=== PATIENT | female | born 1950 | race Caucasian/White ===

== ENCOUNTER 2024-12-08 15:50 | Observation (INO) ==
[2024-12-08] MEDS ORDERED: VANCOMYCIN CONSULT ACTIVE PRN (16:53)
[2024-12-08] MEDS ORDERED: PIPERACILLIN/TAZOBACTAM 4.5 GM/100 ML BAG IV ONE (16:58)
--- NOTE | 2024-12-08 17:18 | Emergency Department Note ---
Impression & Plan Septic arthritis of wrist, right, Right wrist pain ED Provider Note NAME: CARL MONTGOMERY AGE: 74 SEX: F : 1950 ARRIVES VIA: Walk-In INFORMANT: Patient, ED PROVIDER(S): Hardik Gresham MD CHIEF COMPLAINT: Hand infection, outpatient referral MEDICAL DECISION MAKING: Patient presents for the above. I did reach out to Dr. Briones reported that the patient is likely had a hand infection over the last 3 weeks which has progressively gotten worse. Not amenable to outpatient antibiotics. He is requesting an MRI of the wrist for preoperative purposes but will plan to operate on the patient tomorrow afternoon. IV was established and blood work was obtained along with blood cultures and the patient was ordered IV vancomycin and Rocephin. Blood work shows a normal white count hemoglobin and platelet count. The patient's kidney function is unremarkable. Pro-Pablo is not elevated. Screening EKG does show nonspecific ST changes but the patient has no chest pain or shortness of breath. No priors for comparison. I did speak with the on-call hospitalist service LAQUITA Alfred PA-C and the patient was admitted by Dr. Ortiz. Discussion w/ other healthcare providers: ADELIA Alfred PA-C and Dr. Ortiz inpatient medicine service Dr. Briones orthopedic hand specialist Prior /Outside records reviewed: Did review the patient's outpatient physician note from Dr. Spear from earlier today Differential diagnosis: Cellulitis, abscess, MRSA infection, DVT, necrotizing fasciitis, dermatitis, drug eruption, allergic reaction, as well as other pathologies were considered. Diagnostics, as interpreted by me: ECG: Normal sinus rhythm, rate of 83, normal intervals normal axis no ST elevations. Possible slight ST depressions in the lateral leads. No priors for comparison. Cardiac monitoring: An order was placed for continuous cardiac monitoring. The monitor shows a rate of 85 with sinus rhythm. Patient was placed on pulse oximetry Medical decision rules: None Imaging studies: See below HPI: Patient presents due to concern for right hand swelling which is ongoing about 3 weeks ago. The patient reports she was initially seen at [place] and was prescribed steroids for 5 days for possible arthritis. The patient was seen in the outpatient setting by Dr. Hdz where her PCP was for her on Keflex for 10 days but this has not improved. Reportedly was at the office today was noted to have hypotension and was referred here for possible IV antibiotics as well as possible surgery. There have been discussion with Dr. Briones from hand surgery about the possibility of outpatient MRI and surgery tomorrow at [facility]; however, during the patient's preoperative visit with her primary care doctor they were concerned about her symptoms and blood pressure and referred here. Patient denies any fevers or chills. No falls or trauma. The patient is right- hand dominant. She denies any inciting cause to her hand swelling. She denies any injury or trauma no bug bite or allergy. She states that it is somewhat painful. PAST MEDICAL HISTORY: See Below PAST SURGICAL HISTORY: See Below SOCIAL HISTORY: See Below HOME MEDICATIONS: See Below ALLERGIES: See Below VITALS: See Below PHYSICAL EXAMINATION: GENERAL: NAD, non-toxic. EYE EXAM: Normal conjunctiva. PERRL, no anisocoria and EOM's grossly intact w/o pain. OROPHARYNX: Moist mucus membranes, grossly normal dentition. NECK: Trachea midline, no stridor. LUNGS: Clear to auscultation. Normal chest wall mechanics. HEART: NSR, no MRG. ABDOMEN: Abdomen soft, non-tender, no masses, no rebound or guarding. BACK: No CVA TTP. SKIN: No rashes and no bruising. UPPER EXTREMITIES: Right hand pain and swelling with associated erythema, no crepitus, compartments are soft. Neurovascular intact distally able to flex and extend at all the fingers. LOWER EXTREMITIES: Grossly normal, no edema. NEURO EXAM: Awake and alert, follows commands, no obvious facial asymmetry, normal speech, moves all 4 extremities. Past Med/Surg History Problem List (Updated 12/09/24 @ 20:19 by Hardik Gresham MD) Septic arthritis of wrist, right (Acute) Right wrist pain (Acute) Medical History Encounter for pre-operative examination Infectious tenosynovitis Psoriatic arthritis Hypokalemia Hypothyroidism Hypertension Surgical History History of heart artery stent Social History Smoking Status: Never smoker Hx Alcohol Use: No Hx Substance Use: No Preferred Language: Romansh Communication Ability: Effective Seaming Inspector Required: No Beliefs That Will Affect Care: None Current Living Situation: Spouse and Family Current Living Situation Comment: with and daughter Other Information That Helps Us Care for You: No Feels Safe at Home: Yes Safety Concerns: Feels Safe At This Time Assistive Devices: Walker Assistive Devices Comment: partial Allergies Allergies Allergy/AdvReac Type Severity Reaction Status Date / Time No Known Allergies Allergy Verified 12/08/24 17:59 Home Meds Home Medications Medication Instructions Recorded Confirmed apremilast 30 mg tablet (Otezla) 30 mg PO BID 12/08/24 12/08/24 aspirin 81 mg tablet,delayed 81 mg PO DAILY 12/08/24 12/08/24 release atorvastatin 40 mg tablet 40 mg PO DAILY 12/08/24 12/08/24 celecoxib 200 mg capsule 200 mg PO QDD 12/08/24 12/08/24 cephalexin 500 mg capsule 500 mg PO Q6H 12/08/24 12/08/24 cholecalciferol (vitamin D3) 10 20 mcg PO DAILY 12/08/24 12/08/24 mcg (400 unit) capsule (Vitamin D3) clopidogrel 75 mg tablet 75 mg PO DAILY 12/08/24 12/08/24 furosemide 20 mg tablet 20 mg PO DAILY PRN EDEMA/LEG 12/08/24 12/08/24 SWELLING levothyroxine 125 mcg tablet 125 mcg PO DAILYBB 12/08/24 12/08/24 losartan 100 mg tablet 100 mg PO QDD 12/08/24 12/08/24 magnesium oxide 400 mg PO DAILY 12/08/24 12/08/24 metoprolol succinate 50 mg 75 mg PO QDD 12/08/24 12/08/24 tablet,extended release 24 hr nifedipine 60 mg tablet,extended 60 mg PO QAM 12/08/24 12/08/24 release 24 hr (Procardia XL) nitroglycerin 0.4 mg sublingual 0.4 mg sublingual DIRECTED PRN 12/08/24 12/08/24 tablet Chest Pain Results & Data (ED) Vital Signs Vital Signs - 24 hr 12/08/24 15:55 Temperature 37.1 C Temperature Source Temporal Artery Scan Pulse Rate 96 H Respiratory Rate 19 Respiratory Effort / Characteristics Non-Labored Spontaneous Respiratory Depth Normal Respiratory Pattern Regular Blood Pressure 124/75 Blood Pressure Mean 91 Blood Pressure Position Sitting Pulse Oximetry 96 Oxygen Delivery Method Room Air Sepsis Recent Fever Within 48 Hours No Sepsis New/Unexplained Change in Mental Status No Sepsis Action Taken by Nursing No Action Required Home Medications Current Medication List: was personally reviewed by me Laboratory Data Attestation: I reviewed the patient's lab results. 12/09/24 04:11 12/09/24 04:11 Lab Results 12/08/24 Range/Units 17:30 WBC 10.27 (4.8-10.8) K/ul RBC 4.82 (4.20-5.40) M/uL Hgb 12.3 (12.0-16.0) g/dl Hct 38.7 (37.0-47.0) % MCV 80.3 (80.0-100.0) fL MCH 25.5 (25.0-34.0) pg MCHC 31.8 L (32.0-36.0) g/dL RDW Std Deviation 43.5 (36.4-46.3) fL RDW Coeff of Alirio 14.9 H (11.5-14.5) % Plt Count 320 (130-400) K/uL MPV 10.1 (9.4-12.4) fL Immature Gran % (Auto) 0.6 % Neut % (Auto) 79.1 % Lymph % (Auto) 10.3 % Coleman % (Auto) 7.8 % Eos % (Auto) 1.7 % Baso % (Auto) 0.5 % Neut # (Auto) 8.13 H (1.40-6.50) K/uL Lymph # (Auto) 1.06 L (1.20-3.40) K/uL Coleman # (Auto) 0.80 H (0.11-0.59) K/uL Eos # (Auto) 0.17 (0.00-0.50) K/uL Baso # (Auto) 0.05 (0.00-0.20) K/uL Immature Gran # (Auto) 0.06 (0.01-0.20) K/uL Sodium 143 (136-145) mmol/L Potassium 3.7 (3.5-5.1) mmol/L Chloride 108 H (98-107) mmol/L Carbon Dioxide 26 (21-32) mmol/L Anion Gap 9 (3-11) BUN 20 (6-23) mg/dl Creatinine 0.94 (0.6-1.2) mg/dl Est Cr Clr Drug Dosing 47.2 ml/min eGFR 63.67 BUN/Creatinine Ratio 21.3 H (10-20) Glucose 111 H (70-99(Fasting)) mg/dl Lactate 0.7 (0.4-2.0) mmol/L Calcium 9.0 (8.6-10.3) mg/dl Magnesium 2.5 H (1.7-2.4) mg/dl Total Bilirubin 0.5 (0.2-1.0) mg/dl Direct Bilirubin 0.1 (0-0.2) mg/dl AST 16 (13-39) U/L ALT 25 (7-52) U/L Alkaline Phosphatase 107 H (34-104) U/L Troponin I High Sens 4.6 (0-14) pg/ml Total Protein 7.5 (6.0-8.3) gm/dl Albumin 3.8 (3.4-5.0) gm/dl Procalcitonin < 0.02 (0-0.5) ng/ml Administered Medications Atorvastatin Calcium (Atorvastatin 40 Mg Tab) 40 mg PO DAILY [facility] Stop: 01/08/25 08:59 Last Admin: 12/09/24 09:23 Dose: Not Given Documented By: NICA Vancomycin HCl 750 mg/ Sodium (Chloride) 265 mls @ 200 mls/hr IV Q12H [facility] Stop: 12/16/24 05:59 Last Infusion: 12/09/24 19:38 Dose: Infused Documented By: Infusion: 12/09/24 19:09 Dose: 200 mls/hr Documented By: Infusion: 12/09/24 18:18 Dose: 0 mls/hr Documented By: Admin: 12/09/24 17:28 Dose: 200 mls/hr Documented By: Infusion: 12/09/24 07:47 Dose: Infused Documented By: Admin: 12/09/24 06:18 Dose: 200 mls/hr Documented By: BRYSON Ceftriaxone Sodium (Rocephin) 2,000 mg in 50 mls @ 100 mls/hr IV Q24H [facility]Y Stop: 12/16/24 17:59 Last Admin: 12/09/24 20:12 Dose: 100 mls/hr Documented By: TLBing Lactated Ringer's (Lr) 1,000 mls @ 15 mls/hr IV .Q24H FABY Stop: 12/12/24 12:59 Last Infusion: 12/09/24 13:46 Dose: Infused Documented By: Admin: 12/09/24 13:30 Dose: 15 mls/hr Documented By: ANNALISA Levothyroxine Sodium (Levothyroxine Sodium 125 Mcg Tablet) 125 mcg PO DAILYBB [facility] Stop: 01/08/25 06:29 Last Admin: 12/09/24 09:23 Dose: Not Given Documented By: NICA Metoprolol Succinate (Metoprolol Succ 25mg Ext Rel Tab) 75 mg PO QDD FABY Stop: 01/08/25 16:29 Last Admin: 12/09/24 17:24 Dose: 75 mg Documented By: NICA Nifedipine (Nifedipine Extended Rel 30 Mg Tabcr) 60 mg PO QAM [facility] Stop: 01/08/25 08:59 Last Admin: 12/09/24 09:23 Dose: Not Given Documented By: NICA Discontinued Medications Acetaminophen (Acetaminophen 325 Mg Tab) 650 mg PO NOW STA Stop: 12/08/24 18:51 Last Admin: 12/08/24 20:12 Dose: 650 mg Documented By: SAHRA Bupivacaine HCl (Bupivacaine 0.5 % 5 Mg/1 Ml Mpf 30ml Vial) Confirm Administered Dose 30 ml .ROUTE .STK-MED ONE Stop: 12/09/24 13:35 Last Admin: 12/09/24 15:05 Dose: 10 ml Documented By: GALINA Fentanyl Citrate (Fentanyl Citrate Pf 100 Mcg/2 Ml Vial) 25 mcg IV Q5M PRN PRN Reason: PACU Use Only-Pain Stop: 12/09/24 23:20 Last Admin: 12/09/24 15:46 Dose: 25 mcg Documented By: Admin: 12/09/24 15:41 Dose: 25 mcg Documented By: Admin: 12/09/24 15:36 Dose: 25 mcg Documented By: Admin: 12/09/24 15:31 Dose: 25 mcg Documented By: BHAVIK Fentanyl Citrate (Fentanyl Citrate Pf 100 Mcg/2 Ml Vial) Confirm Administered Dose 100 mcg .ROUTE .STK-MED ONE Stop: 12/09/24 15:24 Last Admin: 12/09/24 17:16 Dose: Not Given Documented By: NICA Gadobutrol (Gadobutrol 30ml Vial) 6.5 ml IV ONCE ONE Stop: 12/08/24 19:10 Last Admin: 12/08/24 19:10 Dose: 6.5 ml Documented By: MAYKEL Sodium Chloride (Nss) 1,000 mls @ 999 mls/hr IV .Q1H1M FABY Stop: 12/08/24 18:00 Last Infusion: 12/08/24 19:40 Dose: Infused Documented By: Admin: 12/08/24 17:43 Dose: 999 mls/hr Documented By: SAHRA Vancomycin HCl 1,500 mg/ (Sodium Chloride) 500 mls @ 200 mls/hr IV NOW STA Stop: 12/08/24 19:17 Last Infusion: 12/08/24 20:21 Dose: Infused Documented By: Admin: 12/08/24 17:43 Dose: 200 mls/hr Documented By: SAHRA Ceftriaxone Sodium (Rocephin) 2,000 mg in 50 mls @ 100 mls/hr IV NOW STA Stop: 12/08/24 17:43 Last Infusion: 12/08/24 19:36 Dose: Infused Documented By: Admin: 12/08/24 17:43 Dose: 100 mls/hr Documented By: SAHRA Potassium Chloride (K Wan / Wtr) 10 meq in 100 mls @ 100 mls/hr IV Q1H FABY Stop: 12/09/24 14:29 Last Admin: 12/09/24 14:33 Dose: Not Given Documented By: Infusion: 12/09/24 12:50 Dose: Infused Documented By: Admin: 12/09/24 11:48 Dose: 100 mls/hr Documented By: NICA Acetaminophen (Ofirmev) 1,000 mg in 100 mls @ 400 mls/hr IV NOW STA Stop: 12/09/24 10:39 Last Infusion: 12/09/24 11:29 Dose: Infused Documented By: Admin: 12/09/24 10:57 Dose: 400 mls/hr Documented By: NICA Sodium Chloride (Nss) 500 mls @ 80 mls/hr IV .Q6H15M [facility] Stop: 12/09/24 16:44 Last Infusion: 12/09/24 17:17 Dose: Infused Documented By: Admin: 12/09/24 10:57 Dose: 80 mls/hr Documented By: NICA Ondansetron HCl (Ondansetron Inj 2 Mg/Ml 2 Ml Vial) 4 mg IV ONCE PRN PRN Reason: PACU Use Only-Nausea/Vomiting Stop: 12/09/24 23:20 Last Admin: 12/09/24 15:30 Dose: 4 mg Documented By: BHAVIK Ondansetron HCl (Ondansetron Inj 2 Mg/Ml 2 Ml Vial) Confirm Administered Dose 4 mg .ROUTE .STK-MED ONE Stop: 12/09/24 15:24 Last Admin: 12/09/24 17:17 Dose: Not Given Documented By: NICA Ondansetron HCl (Ondansetron Inj 2 Mg/Ml 2 Ml Vial) 4 mg IV NOW STA Stop: 12/09/24 18:20 Last Admin: 12/09/24 18:25 Dose: 4 mg Documented By: NICA Potassium Chloride (Potassium Chloride Crtab 20 Meq Tabcr) 20 meq PO ONE ONE Stop: 12/09/24 18:01 Last Admin: 12/09/24 17:32 Dose: 20 meq Documented By: NICA Imaging Data Radiologist's Impression: Wrist MRI 12/08/24 16:55 EXAM: MR wrist RT wo/w con CLINICAL HISTORY: eval for tenosynovitis TECHNIQUE: Multiplanar multiphasic MR imaging is acquired through the right wrist joint without and with intravenous contrast administration. 6.5 mL of Gadavist was injected intravenously without complications. Images were sent through PACs for diagnostic interpretation. COMPARISON: None. FINDINGS: The triangular fibrocartilage complex: The ulnomeniscal homologue, foveal and ulnar attachments of the triangular fibrocartilage show altered signals, suggesting partial tears. Mild synovial effusion is seen at the distal radioulnar joint, which may suggest central perforation of the triangular fibrocartilage. Joints, Muscles, and soft tissues: Soft tissue edema is seen at the distal forearm and around the right wrist joint. Most appreciated at the dorsum. Findings suggest posttraumatic contusion versus soft tissue cellulitis radiocarpal, ulnocarpal, intercarpal, and carpometacarpal synovial effusion with degenerative changes expressed by denuded articular cartilage with underlying cortical fibrillation and subchondral edema. Degenerative cysts are seen at the right trapezium. Findings are consistent with polyarticular degenerative joint disease (primary osteoarthritis). Associating edema of the right scaphoid, lunate, triquetrum, trapezium, trapezoid, capitate, and pisiform bones, suggesting trabecular microfractures versus osteomyelitis. Altered myogenic signals of the thenar, hypothenar, and lumbrical muscles. The etiological probabilities include trabecular microfractures With Polymyogenic strain versus Osteomyelitis and myositis Ligaments and Tendons: Altered signals of the ulnocarpal, Radiocarpal, and radial collateral, radioscaphocapitate, radioscaphotrapezium, And Dorsal radiocarpal ligaments findings are consistent with partial tears. The right extensor carpi ulnaris tendon shows thickening with altered signals, highly suggestive of tendinitis/partial tear. Normal MRI appearance of the carpal tunnel and its contents. Unremarkable Extensor tendon compartments. Intact scapholunate and lunotriquetral ligaments. Neurovascular Structures: Normal appearance of the visualized neurovascular structures. No evidence of compression or abnormal signal changes. Ulnar variance: Neutral ulnar variance. IMPRESSION: 1. Partial tears of the ulnomeniscal homologue, foveal and ulnar attachments of the triangular fibrocartilage. (Acute/Acute on top of chronic). 2. Mild synovial effusion is seen at the distal radioulnar joint, which may suggest central perforation of the triangular fibrocartilage. (Acute/Acute on top of chronic). 3. 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 4. Bone marrow edema at the right scaphoid, lunate, triquetrum, trapezium, trapezoid, capitate, and pisiform bones.Myogenic signal alterations of the thenar, hypothenar, and lumbrical muscles. 5. And soft tissue edema at the distal forearm and around the right wrist joint. Most appreciated at the dorsum. The etiological probabilities include Soft tissue contusion/cellulitis, trabecular microfractures/ With Polymyogenic strain versus myositis. Further workup is recommended in the appropriate clinical setting. (Acute/Acute on top of chronic). 6. Partial tears of the ulnocarpal, Radiocarpal, and radial collateral, radioscaphocapitate, radioscaphotrapezium, and dorsal radiocarpal ligaments. (Acute). 7. Tendinitis/partial tear of the right extensor carpi ulnaris tendon(Acute). Electronically signed by Alberto Hou 12-08-2024 9:23 PM Discharge Plan Visit Data Chief Complaint: Infection Stated Complaint: RT HAND SWELLING, INFECTION, LOW BP, REF BY ED Provider: Hardik Gresham Discharge Problem: Septic arthritis of wrist, right, Right wrist pain Patient Disposition: Admitted As Inpatient Condition: Good Discharge Instructions Interventions: ED Discharge Assessment Last Done: 12/09/24 03:52 Discharge Problem: Septic arthritis of wrist, right Qualifiers: Septic arthritis organism: due to unspecified organism Qualified Code(s): M00.9 - Pyogenic arthritis, unspecified
--- NOTE | 2024-12-08 17:24 | History & Physical Report ---
Date of Service December 08, 2024 Assessment & Plan (1) Right wrist pain: (2) Infectious tenosynovitis: (3) History of heart artery stent: (4) Hypertension: Plan This patient is a 74-year-old female who presented on 12/08 at the best of her PCP (Dr. Spear) as well as ortho surgery (Dr. Briones) for IV abx in the setting of worsening right wrist infection. # Right wrist infection | suspected to be infectious tenosynovitis Failure of outpatient antibiotics (Keflex) No leukocytosis; VSS on admission; not septic; afebrile, however patient reported fevers at home in the week [employer] Blood cultures drawn Lactate and procalcitonin WNL Orthopedic surgery consult appreciated Hold antiplatelet therapy prior to surgery I&D scheduled with Dr. Briones on the morning of 12/09 N.p.o. midnight MR wrist RT wo/w con ordered, pending to assess for infectious tenosynovitis Vancomycin 1000 mg IV q24h Ceftriaxone 2000 mg IV q24h Acetaminophen as needed for fever/pain control #History of PTCA with RAMON in 2022 Noted; hold aspirin and Plavix prior to surgery (as above) #HTN Hold nifedipine on the morning of 12/09 prior to surgery; will plan to restart on 12/10 Hold losartan perioperatively Continue metoprolol #HLD Continue atorvastatin #Hypothyroidism Continue levothyroxine #?Psoriatic arthritis Hold apremilast for now in the setting of acute infection [facility] PPx: Hold chemical DVT X prior to surgery; SCDs History of Present Illness Chief Complaint: Right hand/wrist infection Primary Care Provider: Paolo Spear DO Mrs. Fountain is a [id number] 74yo female with PMH of PTCA with RAMON in 2022 (on aspirin and Plavix), HTN, HLD, psoriatic thyroiditis, and hypothyroidism. She presented on 12/08 for a worsening right hand/wrist infection x 2 weeks [employer]. Patient was initially trialed on Keflex outpatient by her PCP, but this did not improve her symptoms. She also was prescribed trial of steroids outpatient, but this did not improve her symptoms or swelling. She has been having pain mainly in the thumb joint of her right hand, on the dorsal aspect of her right wrist. Pain radiates up to her elbow. She characterizes it as a constant, "throbbing" pain around the thumb. Patient has been taking tramadol at home for pain (which was leftover from her hip surgery), and reports that this has been helping more than Tylenol. At present, she rates the pain 5 out of 10. Patient saw her PCP today, and was sent in for IV antibiotics. She was originally set to have a surgical consult with U tomorrow on 12/09. She denies any prior history of injuries to the right arm or wrist. In regard to cardiac history, she underwent a PTCA with RAMON in 2022. She is currently on aspirin and Plavix daily for heart stents, but was told to to stop taking them yesterday on 12/07 in preparation for potential surgery. No PMH of stroke, DM, or kidney issues. Patient believes she might of had fevers at home this past week. She denies smoking, tobacco use, or recent alcohol use. Patient took most of her regular morning medicines today, but did not take her aspirin or Plavix. She is still currently taking her antibiotic. She manages her own medicine at home. Patient's vitals are stable at time of admission. ED course: NSS 1000 mL IV Vancomycin 1500 mg IV Ceftriaxone 2000 mg IV ROS: Patient endorses pain on the dorsal aspect of the right wrist and around the right thumb joint, fevers at home this past week, night sweats, headache, numbness or tingling in the right hand, and difficulty flexing/moving her fingers. Patient denies chills, dizziness/lightheadedness with walking, changes in vision, chest pain, chest palpitations, SOB, cough, pleuritic CP, abdominal pain, N/V/D, or changes in urinary bowel habits. Allergies Allergy/AdvReac Type Severity Reaction Status Date / Time No Known Allergies Allergy Verified 12/08/24 17:59 Home Medications Medication Instructions Recorded Confirmed Type apremilast 30 mg tablet (Otezla) 30 mg PO BID 12/08/24 12/08/24 History aspirin 81 mg tablet,delayed 81 mg PO DAILY 12/08/24 12/08/24 History release atorvastatin 40 mg tablet 40 mg PO DAILY 12/08/24 12/08/24 History celecoxib 200 mg capsule 200 mg PO QDD 12/08/24 12/08/24 History cephalexin 500 mg capsule 500 mg PO Q6H 12/08/24 12/08/24 History cholecalciferol (vitamin D3) 10 20 mcg PO DAILY 12/08/24 12/08/24 History mcg (400 unit) capsule (Vitamin D3) clopidogrel 75 mg tablet 75 mg PO DAILY 12/08/24 12/08/24 History furosemide 20 mg tablet 20 mg PO DAILY PRN EDEMA/LEG 12/08/24 12/08/24 History SWELLING levothyroxine 125 mcg tablet 125 mcg PO DAILYBB 12/08/24 12/08/24 History losartan 100 mg tablet 100 mg PO QDD 12/08/24 12/08/24 History magnesium oxide 400 mg PO DAILY 12/08/24 12/08/24 History metoprolol succinate 50 mg 75 mg PO QDD 12/08/24 12/08/24 History tablet,extended release 24 hr nifedipine 60 mg tablet,extended 60 mg PO QAM 12/08/24 12/08/24 History release 24 hr (Procardia XL) nitroglycerin 0.4 mg sublingual 0.4 mg sublingual DIRECTED PRN 12/08/24 12/08/24 History tablet Chest Pain Past Med/Surg History Problem List (Updated 12/08/24 @ 18:52 by Edy Alfred PA-C) Hypertension History of heart artery stent Infectious tenosynovitis Right wrist pain Social History Smoking Status: Never smoker Preferred Language: Frisian Feels Safe at Home: Yes Review of Systems 2 Review of Systems: See HPI above Physical Exam 2 Physical Exam: General: no acute distress; anxious; pleasant affect; non-toxic appearing; frail appearing; cooperative; SpO2 96% on RA HEENT: normocephalic, atraumatic; no scleral icterus; PERRLA; vision and hearing intact Neck: supple; trachea midline Skin: warm, dry without signs of tenting; no cyanosis; no rashes, bruising, lesions, or erythema noted CV: chest wall NTP; RRR; S1/S2 normal; no murmurs/rubs/gallops; pulses intact and symmetric at radial, DP, and PT Lungs: no acute respiratory distress; symmetrical chest wall expansion; clear breath sounds across all lung maxwell w/o adventitious sounds; no wheezing ABD: Soft, NTP; BS present; no rebound/guarding; no distention MSK: no tics or fasciculations; no edema noted in the LEs b/l, nonerythematous Right hand: The dorsal aspect of the right hand/wrist is swollen and mildly erythematous (see photos below); hot to touch; thumb saddle joint is TTP, and patient exhibits minimal ability to flex at the DIP of her thumb; patient exhibits ability to flex 15 to 25 degrees in each of her finger joints, but this elicits pain; patient has significant difficulty flexing and extending her wrist; no deficits or difficulty with flexing/extending her elbow Neuro: A&Ox3; normal mood and affect; fluent speech; patient reports sensation is intact and symmetric in the hands bilaterally assessed via light touch at the ulnar/radial surfaces Results & Data Results & Data Vital Signs (Past 12 Hours) Vital Signs Temp Pulse Resp BP Pulse Ox O2 Del Method 12/08/24 15:55 37.1 C 96 H 19 124/75 96 Room Air Laboratory Results Abnormal lab results 12/08/24 Range/Units 17:30 MCHC 31.8 L (32.0-36.0) g/dL RDW Coeff of Alirio 14.9 H (11.5-14.5) % Neut # (Auto) 8.13 H (1.40-6.50) K/uL Lymph # (Auto) 1.06 L (1.20-3.40) K/uL Elliott # (Auto) 0.80 H (0.11-0.59) K/uL ECG Additional Comments: EKG revealed NSR at 83 bpm; QTc 474 No prior EKGs readily available for comparison Code Status & VTE Plan Code Status Full code VTE Prophylaxis Plan VTE Prophylaxis will be ordered: Yes Supervising Physician Co-Signing Physician Notes I personally examined the patient and verified all lawton points of history and exam, discussed case, and agree with decision making with Federico Alfred PA-C hand swollen tender. Saw Ortho in the officerecommended admission for more urgent management. Vitals noted, in general she is pleasant no distress but her hand and wrist are quite swollen. Hand/wrist infectionimaging, antibiotics, orthopedics consult. Otherwise as above. PG Care Time/CCT Total # of Minutes Spent Total Time Spent with Patient: Total time spent is greater than 50% in coordination of care (as documented) at patient's floor/unit and/or counseling patient: [place] [address] INT INP/OBS CARE 75MIN Patient Type New Medical Decision Making High Complexity Diagnoses Right wrist pain M25.531 Infectious tenosynovitis M65.10 History of heart artery stent Z95.5 Hypertension I10
[2024-12-08] MEDS: SODIUM CHLORIDE 0.9% 1,000 ML IV SCH (17:43)
[2024-12-08] MEDS: VANCOMYCIN HCL 1,500 MG in SODIUM CHLORIDE 0.9% 500 ML IV STA (17:43)
[2024-12-08] MEDS: cefTRIAXone SODIUM 2,000 MG/50 ML BAG IV STA (17:43)
[2024-12-08 18:04] LABS: Hematocrit (blood only) 38.7 % (37.0-47.0); Hemoglobin 12.3 g/dl (12.0-16.0); Immature Granulocytes # (auto) 0.06 K/uL (0.01-0.20); Immature Granulocytes % (auto) 0.6 %; Mean Corpuscular Hemoglobin 25.5 pg (25.0-34.0); Mean Corpuscular Volume 80.3 fL (80.0-100.0); Platelet Count 320 K/uL (130-400); RDW Standard Deviation 43.5 fL (36.4-46.3); Red Blood Count 4.82 M/uL (4.20-5.40); White Blood Count 10.27 K/ul (4.8-10.8)
[2024-12-08 18:22] LABS: Alanine Aminotransferase 25.0 U/L (7-52); Alkaline Phosphatase 107.0 U/L (34-104); Anion Gap 9.0 (3-11); Bilirubin,Total 0.5 mg/dl (0.2-1.0); Blood Urea Nitrogen 20.0 mg/dl (6-23); Calcium 9.0 mg/dl (8.6-10.3); Carbon Dioxide 26.0 mmol/L (21-32); Chloride 108.0 mmol/L (98-107); Creatinine Clr Calc Pharmacy 47.2 ml/min; Glucose 111.0 mg/dl (70-99(Fasting)); Magnesium 2.5 mg/dl (1.7-2.4); Potassium 3.7 mmol/L (3.5-5.1); Sodium 143.0 mmol/L (136-145); Total Protein 7.5 gm/dl (6.0-8.3)
[2024-12-08] MEDS: GADOBUTROL 30ML VIAL IV ONE (19:10)
[2024-12-08] MEDS: ACETAMINOPHEN 325 MG TAB PO STA (20:12)
--- NOTE | 2024-12-08 21:23 | Magnetic Resonance Report ---
EXAM: MR wrist RT wo/w con CLINICAL HISTORY: eval for tenosynovitis TECHNIQUE: Multiplanar multiphasic MR imaging is acquired through the right wrist joint without and with intravenous contrast administration. 6.5 mL of Gadavist was injected intravenously without complications. Images were sent through PACs for diagnostic interpretation. COMPARISON: None. FINDINGS: The triangular fibrocartilage complex: The ulnomeniscal homologue, foveal and ulnar attachments of the triangular fibrocartilage show altered signals, suggesting partial tears. Mild synovial effusion is seen at the distal radioulnar joint, which may suggest central perforation of the triangular fibrocartilage. Joints, Muscles, and soft tissues: Soft tissue edema is seen at the distal forearm and around the right wrist joint. Most appreciated at the dorsum. Findings suggest posttraumatic contusion versus soft tissue cellulitis radiocarpal, ulnocarpal, intercarpal, and carpometacarpal synovial effusion with degenerative changes expressed by denuded articular cartilage with underlying cortical fibrillation and subchondral edema. Degenerative cysts are seen at the right trapezium. Findings are consistent with polyarticular degenerative joint disease (primary osteoarthritis). Associating edema of the right scaphoid, lunate, triquetrum, trapezium, trapezoid, capitate, and pisiform bones, suggesting trabecular microfractures versus osteomyelitis. Altered myogenic signals of the thenar, hypothenar, and lumbrical muscles. The etiological probabilities include trabecular microfractures With Polymyogenic strain versus Osteomyelitis and myositis Ligaments and Tendons: Altered signals of the ulnocarpal, Radiocarpal, and radial collateral, radioscaphocapitate, radioscaphotrapezium, And Dorsal radiocarpal ligaments findings are consistent with partial tears. The right extensor carpi ulnaris tendon shows thickening with altered signals, highly suggestive of tendinitis/partial tear. Normal MRI appearance of the carpal tunnel and its contents. Unremarkable Extensor tendon compartments. Intact scapholunate and lunotriquetral ligaments. Neurovascular Structures: Normal appearance of the visualized neurovascular structures. No evidence of compression or abnormal signal changes. Ulnar variance: Neutral ulnar variance. IMPRESSION: 1. Partial tears of the ulnomeniscal homologue, foveal and ulnar attachments of the triangular fibrocartilage. (Acute/Acute on top of chronic). 2. Mild synovial effusion is seen at the distal radioulnar joint, which may suggest central perforation of the triangular fibrocartilage. (Acute/Acute on top of chronic). 3. 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 4. Bone marrow edema at the right scaphoid, lunate, triquetrum, trapezium, trapezoid, capitate, and pisiform bones.Myogenic signal alterations of the thenar, hypothenar, and lumbrical muscles. 5. And soft tissue edema at the distal forearm and around the right wrist joint. Most appreciated at the dorsum. The etiological probabilities include Soft tissue contusion/cellulitis, trabecular microfractures/ With Polymyogenic strain versus myositis. Further workup is recommended in the appropriate clinical setting. (Acute/Acute on top of chronic). 6. Partial tears of the ulnocarpal, Radiocarpal, and radial collateral, radioscaphocapitate, radioscaphotrapezium, and dorsal radiocarpal ligaments. (Acute). 7. Tendinitis/partial tear of the right extensor carpi ulnaris tendon(Acute). Electronically signed by Alberto Hou 12-08-2024 9:23 PM
[2024-12-09] MEDS ORDERED: VANCOMYCIN CONSULT ACTIVE PRN (03:52)
[2024-12-09] MEDS ORDERED: MELATONIN 3 MG TAB PO PRN (03:52)
[2024-12-09 04:53] LABS: Hematocrit (blood only) 35.0 % (37.0-47.0); Hemoglobin 11.0 g/dl (12.0-16.0); Immature Granulocytes # (auto) 0.03 K/uL (0.01-0.20); Immature Granulocytes % (auto) 0.4 %; Mean Corpuscular Hemoglobin 25.5 pg (25.0-34.0); Mean Corpuscular Volume 81.2 fL (80.0-100.0); Platelet Count 284 K/uL (130-400); RDW Standard Deviation 43.8 fL (36.4-46.3); Red Blood Count 4.31 M/uL (4.20-5.40); White Blood Count 8.00 K/ul (4.8-10.8)
[2024-12-09 05:08] LABS: Anion Gap 6.0 (3-11); Blood Urea Nitrogen 15.0 mg/dl (6-23); Calcium 7.9 mg/dl (8.6-10.3); Carbon Dioxide 26.0 mmol/L (21-32); Chloride 110.0 mmol/L (98-107); Creatinine Clr Calc Pharmacy 60.0 ml/min; Glucose 95.0 mg/dl (70-99(Fasting)); Potassium 3.3 mmol/L (3.5-5.1); Sodium 142.0 mmol/L (136-145)
[2024-12-09] MEDS: VANCOMYCIN HCL 750 MG in SODIUM CHLORIDE 0.9% 250 ML IV SCH (06:18)
[2024-12-09] MEDS: ATORVASTATIN 40 MG TAB PO SCH (09:23)
[2024-12-09] MEDS: LEVOTHYROXINE SODIUM 125 MCG TABLET PO SCH (09:23)
[2024-12-09] MEDS: NIFEdipine EXTENDED REL 30 MG TABCR PO SCH (09:23)
--- NOTE | 2024-12-09 10:09 | Pharmacy Report ---
Pharmacy PK ABX Note - Date of Service December 09, 2024 - Assessment and Plan Assessment 74 year old F receiving vancomycin and ceftriaxone for treatment of suspected tenosynovitis. Worsening hand/wrist infection X 2 weeks outpatient, trialed on cephalexin by PCP. Ortho consulted. Plan for I&D today. Blood cultures pending. SCr 0.94-->0/74mg/dl. Day # 2 of antimicrobial therapy. Plan Vancomycin * Loading dose: 1500 mg IV x 1 * Maintenance dose: 750 mg IV every 12 hours * Regimen is predicted to achieve target AUC/LEXI of 400-600 mg/L.hr * Random level in AM Pharmacy will continue to follow and will adjust dose/frequency as necessary. Thank you. Pharmacy has transitioned to AUC monitoring for vancomycin. AUC/LEXI is the preferred PK/PD target and is associated with decreased risk of nephrotoxicity compared to traditional trough targets.
--- NOTE | 2024-12-09 10:38 | Hospitalist Progress Note ---
"Date of Service December 09, 2024 Assessment & Plan (1) Right wrist pain: (2) Infectious tenosynovitis: (3) History of heart artery stent: (4) Hypertension: Plan This patient is a 74-year-old female who presented on 12/08 at the best of her PCP (Dr. Spear) as well as ortho surgery (Dr. Briones) for IV abx in the setting of worsening right wrist infection. # Right wrist infection | suspected to be infectious tenosynovitis Failure of outpatient antibiotics (Keflex) No leukocytosis; VSS on admission; not septic; afebrile, however patient reported fevers at home in the week [employer] Blood cultures drawn on 12/08 with NGTD Lactate and procalcitonin WNL Orthopedic surgery consult appreciated Hold antiplatelet therapy prior to surgery IVF added while NPO I&D with Dr. Briones on the afternoon of 12/09 MR wrist RT wo/w con on 12/09 revealed partial tears and multiple ligaments; tendinitis at the right extensor carpi ulnaris tendon Continue Vancomycin 1000 mg IV q24h Continue Ceftriaxone 2000 mg IV q24h Acetaminophen as needed for fever/pain control #Hypokalemia Mild; K 3.3 on 12/09 K rider 10 mEq x 2 Potassium chloride 20mEq p.o. following surgery Trend BMP #History of PTCA with RAMON in 2022 Noted; hold aspirin and Plavix prior to surgery (as above) #HTN Hold nifedipine on the morning of 12/09 prior to surgery; will plan to restart on 12/10 Hold losartan perioperatively Continue metoprolol #HLD Continue atorvastatin #Hypothyroidism Continue levothyroxine #?Psoriatic arthritis Hold apremilast for now in the setting of acute infection Disposition: Continued stay on MedSurg telemetry VTE PPx: Hold chemical DVT PPX prior to surgery; SCDs Admission and Anticipated Discharge Date Admission Date: December 08, 2024 Supervising Physician Co-Signing Physician Notes Attending Attestation - Chart reviewed, care plan d/w GENA lAfred. I agree w/ the lawton components of his documentation. Appreciate ortho assistance. f/u on crystal analysis from the OR today. f/u on multiple cultures from the OR today. Steven Doran MD Subjective Mrs. Fountain is resting peacefully in bed this morning. She had some difficulty sleeping last night as she was awoken around 2 AM to be moved up from the emergency department to her bed upstairs. She reports her wrist is still hurting this morning, and it is about the same as yesterday. She rates it a 5 out of 10 with most of the pain being around the saddle joint of her thumb. The pain does extend up to her elbow at times. She also noted tingling in her fingers overnight. No fevers. ROS: Patient Dors is pain in the right wrist, pain in the right hand around the thumb, and tingling in her fingers. Patient denies fever, chills, night sweats, chest pain, SOB, pleuritic CP, cough, abdominal pain, N/V/D, or changes in urinary or bowel habits. Review of Systems Review of Systems: See HPI above Physical Exam Physical Exam: General: no acute distress; anxious; resting peacefully in bed; pleasant affect; non-toxic appearing; frail appearing; cooperative; SpO2 95% on RA HEENT: normocephalic, atraumatic; no scleral icterus; PERRLA; vision and hearing intact Neck: supple; trachea midline Skin: warm, dry without signs of tenting; no cyanosis; no rashes, bruising, lesions, or erythema noted CV: chest wall NTP; RRR; S1/S2 normal; no murmurs/rubs/gallops; pulses intact and symmetric at radial, DP, and PT Lungs: no acute respiratory distress; symmetrical chest wall expansion; clear breath sounds across all lung maxwell w/o adventitious sounds; no wheezing ABD: Soft, NTP; BS present; no rebound/guarding; no distention MSK: no tics or fasciculations; no edema noted in the LEs b/l, nonerythematous Right hand: The dorsal aspect of the right hand/wrist is swollen and mildly erythematous; warm to touch; thumb saddle joint is TTP, and patient exhibits minimal ability to flex at the DIP of her thumb; patient exhibits ability to flex approximately 30 degrees in each finger joint; patient has significant difficulty flexing and extending her wrist; no deficits or difficulty with flexing/extending her elbow Neuro: A&Ox3; normal mood and affect; fluent speech; patient reports sensation is intact and symmetric in the hands bilaterally assessed via light touch at the ulnar/radial surfaces Results & Data Results & Data Vital Signs (Past 12 Hours) Vital Signs Temp Pulse Resp BP Pulse Ox O2 Del Method 12/09/24 10:31 79 12/09/24 06:00 68 13 123/76 95 Room Air 12/09/24 04:13 67 16 95 Room Air 12/09/24 04:00 69 20 103/53 L 93 Room Air 12/09/24 03:33 71 14 130/68 93 Room Air 12/09/24 02:03 68 16 104/59 L 96 Room Air 12/09/24 02:00 Room Air 12/09/24 02:00 36.6 C 12/09/24 01:33 76 12/09/24 01:00 75 16 159/90 H 95 Room Air 12/09/24 00:33 78 15 145/83 H 97 Room Air 12/09/24 00:09 76 13 144/75 H 96 Room Air 12/08/24 23:16 77 16 142/78 H 95 Room Air 12/08/24 23:00 78 17 142/79 H 94 Room Air 12/08/24 22:45 76 17 148/81 H 96 Room Air PG Care Time/CCT Total # of Minutes Spent Total Time Spent with Patient: Total time spent is greater than 50% in coordination of care (as documented) at patient's floor/unit and/or counseling patient: Coding [place] [address] SUB INP/OBS CARE 2/35MIN Patient Type Established Medical Decision Making Moderate Complexity Diagnoses Right wrist pain M25.531 Infectious tenosynovitis M65.10 History of heart artery stent Z95.5 Hypertension I10"
[2024-12-09] MEDS: SODIUM CHLORIDE 0.9% 500 ML IV SCH (10:57)
[2024-12-09] MEDS: ACETAMINOPHEN 1,000 MG/100 ML VIAL IV STA (10:57)
--- NOTE | 2024-12-09 11:03 | Communication Note ---
Date of Service: December 09, 2024 MRI and labs reviewed. Given clinical exam of severe joint pain and swelling wtih ESR=48 I have concern to septic joint. Will plan for OR this afternoon.
[2024-12-09] MEDS: POTASSIUM CHLORIDE / WTR 10 MEQ/100 ML PLCT IV SCH (11:48)
[2024-12-09] MEDS ORDERED: MIDAZOLAM HCL 1 MG/ML 2ML VIAL ONE (12:06)
[2024-12-09] MEDS ORDERED: PROPOFOL IV EMULSION 10 MG/ML 20 ML VIAL IV ONE (12:07)
[2024-12-09] MEDS ORDERED: LIDOCAINE 2% 2 ML VIAL/AMP(20MG/ML) INFIL ONE (12:07)
[2024-12-09] MEDS ORDERED: ONDANSETRON INJ 2 MG/ML 2 ML VIAL ONE (12:07)
--- NOTE | 2024-12-09 12:40 | Anesthesiology Consultation ---
Date of Service December 09, 2024 Assessment & Plan (1) Encounter for pre-operative examination: Chart Review Chart Review: Acceptable Risk for Surgery and Patient NOT seen in Pre Admission Testing Consults Requested none History Surgery Operation Date: 12/09/24 10:20 Proposed Procedures p Incision and Drainage Septic Right Wrist - Micky Briones MD Height/Weight Height: 5 ft 5 in Weight: 65 kg Allergies Allergy/AdvReac Type Severity Reaction Status Date / Time No Known Allergies Allergy Verified 12/08/24 17:59 Medications Home Medications Medication Instructions Recorded Confirmed Last Taken apremilast 30 mg tablet (Otezla) 30 mg PO BID 12/08/24 12/08/24 12/07/24 aspirin 81 mg tablet,delayed 81 mg PO DAILY 12/08/24 12/08/24 12/07/24 release atorvastatin 40 mg tablet 40 mg PO DAILY 12/08/24 12/08/24 12/07/24 celecoxib 200 mg capsule 200 mg PO QDD 12/08/24 12/08/24 12/07/24 cephalexin 500 mg capsule 500 mg PO Q6H 12/08/24 12/08/24 12/08/24 08:00 cholecalciferol (vitamin D3) 10 20 mcg PO DAILY 12/08/24 12/08/24 12/07/24 mcg (400 unit) capsule (Vitamin D3) clopidogrel 75 mg tablet 75 mg PO DAILY 12/08/24 12/08/24 12/07/24 furosemide 20 mg tablet 20 mg PO DAILY PRN EDEMA/LEG 12/08/24 12/08/24 Unknown SWELLING levothyroxine 125 mcg tablet 125 mcg PO DAILYBB 12/08/24 12/08/24 12/08/24 losartan 100 mg tablet 100 mg PO QDD 12/08/24 12/08/24 12/07/24 magnesium oxide 400 mg PO DAILY 12/08/24 12/08/24 Unknown metoprolol succinate 50 mg 75 mg PO QDD 12/08/24 12/08/24 12/07/24 tablet,extended release 24 hr nifedipine 60 mg tablet,extended 60 mg PO QAM 12/08/24 12/08/24 12/08/24 release 24 hr (Procardia XL) nitroglycerin 0.4 mg sublingual 0.4 mg sublingual DIRECTED PRN 12/08/24 12/08/24 Unknown tablet Chest Pain Active Medications Generic Name Dose Route Start Last Admin Trade Name Anton PRN Reason Stop Dose Admin Atorvastatin Calcium 40 mg 12/09/24 09:00 12/09/24 09:23 Atorvastatin 40 Mg Tab PO 01/08/25 08:59 Not Given DAILY FABY Vancomycin HCl 750 mg/ Sodium 265 mls @ 200 mls/hr 12/09/24 06:00 12/09/24 07:47 Chloride IV 12/16/24 05:59 Infused Q12H FABY Infusion Potassium Chloride 10 meq in 100 mls @ 100 mls/hr 12/09/24 12:30 12/09/24 12:50 K Wan / Wtr IV 12/09/24 14:29 Infused Q1H FABY Infusion Sodium Chloride 500 mls @ 80 mls/hr 12/09/24 10:30 12/09/24 10:57 Nss IV 12/09/24 16:44 80 mls/hr .Q6H15M FABY Administration Levothyroxine Sodium 125 mcg 12/09/24 06:30 12/09/24 09:23 Levothyroxine Sodium 125 Mcg Tablet PO 01/08/25 06:29 Not Given DAILYBB FABY Nifedipine 60 mg 12/09/24 09:00 12/09/24 09:23 Nifedipine Extended Rel 30 Mg Tabcr PO 01/08/25 08:59 Not Given QAM FABY Past Medical History Medical History (Updated 12/09/24 @ 12:44 by Yo Myrick MD) Encounter for pre-operative examination Infectious tenosynovitis Psoriatic arthritis Hypokalemia Hypothyroidism Hypertension Past Surgical History Surgical History History of heart artery stent stent 2023 Social History Smoking Status: Never smoker Hx Alcohol Use: No Hx Substance Use: No substance use type: does not use Physical Exam Vital Signs Last Vital Signs Temp 36.6 C 12/09/24 13:04 Pulse 83 12/09/24 13:04 Resp 20 12/09/24 13:04 BP 176/89 H 12/09/24 13:04 Pulse Ox 98 12/09/24 13:04 O2 Del Method Room Air 12/09/24 13:04 Testing Laboratory Results 12/09/24 04:11 12/09/24 04:11 Electrocardiogram Date: 12/08/24 Findings: + PALMER @ (05)
[2024-12-09] MEDS: LACTATED RINGER'S 1,000 ML IV SCH (13:30)
--- NOTE | 2024-12-09 13:42 | History & Physical Bridge Note ---
Date of Service December 09, 2024 History & Physical Bridge Note I have examined the patient, reviewed the History & Physical and in the interval since the performance of the History & Physical I have noted the following changes of clinical significance: no changes noted Supervising Physician Co-Signing Physician Notes I saw the patient in the preoperative holding area. She has been started on intravenous antibiotics. Previously she was placed on a prednisone Dosepak which resulted in no relief at all. Her uric acid is normal. In the interim she states she has continued wrist pain, but overall feels slightly better. Examination is somewhat improved. She still has edema in the wrist and pain with range of motion diffusely in the wrist. Her wrist is warm to the touch and shows tenderness with range of motion, but less so compared to yesterday. I discussed with her I cannot ascertain definitively whether or not this is a septic joint, but it is a septic joint she would certainly require urgent irrigation and debridement. She is understanding of these issues. We discussed risk benefits of outcomes and expectations. She is agreeable and wishes to proceed with: Right wrist incision and drainage
--- NOTE | 2024-12-09 13:52 | Consultation ---
Date of Consultation December 09, 2024 Assessment & Plan (1) Septic arthritis of wrist, right: Supervising Physician Co-Signing Physician Notes I saw the patient in the preoperative holding area. She has been started on intravenous antibiotics. Previously she was placed on a prednisone Dosepak which resulted in no relief at all. Her uric acid is normal. In the interim she states she has continued wrist pain, but overall feels slightly better. Examination is somewhat improved. She still has edema in the wrist and pain with range of motion diffusely in the wrist. Her wrist is warm to the touch and shows tenderness with range of motion, but less so compared to yesterday. I discussed with her I cannot ascertain definitively whether or not this is a septic joint, but it is a septic joint she would certainly require urgent irrigation and debridement. She is understanding of these issues. We discussed risk benefits of outcomes and expectations. She is agreeable and wishes to proceed with: Right wrist incision and drainage History of Present Illness Reason for Consultation: Septic right wrist Attending Physician: Steven Doran MD History of Present Illness This is a patient known to me from being seen in the office 48 hours ago. Examination at that time showed significant warmth to the wrist with severe pain with any range of motion of the wrist. She had a ESR of 48 and a slightly elevated white count. Uric acid was normal. I have concern for septic wrist. We had her tentatively scheduled for washout as an outpatient. However she saw her primary care physician and noted that her blood pressure was decreased so we decided to admit her to the hospital for IV antibiotics and treat her as an inpatient. Since admission her vital signs have been been stable, in fact slightly hypertensive. She has a normal lactate and procalcitonin and is afebrile. Allergies Allergy/AdvReac Type Severity Reaction Status Date / Time No Known Allergies Allergy Verified 12/08/24 17:59 Home Medications Medication Instructions Recorded Confirmed Type apremilast 30 mg tablet (Otezla) 30 mg PO BID 12/08/24 12/08/24 History aspirin 81 mg tablet,delayed 81 mg PO DAILY 12/08/24 12/08/24 History release atorvastatin 40 mg tablet 40 mg PO DAILY 12/08/24 12/08/24 History celecoxib 200 mg capsule 200 mg PO QDD 12/08/24 12/08/24 History cephalexin 500 mg capsule 500 mg PO Q6H 12/08/24 12/08/24 History cholecalciferol (vitamin D3) 10 20 mcg PO DAILY 12/08/24 12/08/24 History mcg (400 unit) capsule (Vitamin D3) clopidogrel 75 mg tablet 75 mg PO DAILY 12/08/24 12/08/24 History furosemide 20 mg tablet 20 mg PO DAILY PRN EDEMA/LEG 12/08/24 12/08/24 History SWELLING levothyroxine 125 mcg tablet 125 mcg PO DAILYBB 12/08/24 12/08/24 History losartan 100 mg tablet 100 mg PO QDD 12/08/24 12/08/24 History magnesium oxide 400 mg PO DAILY 12/08/24 12/08/24 History metoprolol succinate 50 mg 75 mg PO QDD 12/08/24 12/08/24 History tablet,extended release 24 hr nifedipine 60 mg tablet,extended 60 mg PO QAM 12/08/24 12/08/24 History release 24 hr (Procardia XL) nitroglycerin 0.4 mg sublingual 0.4 mg sublingual DIRECTED PRN 12/08/24 12/08/24 History tablet Chest Pain Patient History Medical History Encounter for pre-operative examination Infectious tenosynovitis Psoriatic arthritis Hypokalemia Hypothyroidism Hypertension Surgical History History of heart artery stent Social History Smoking Status: Never smoker Hx Alcohol Use: No Hx Substance Use: No Preferred Language: Slovak Communication Ability: Effective Employee Relations Consultant Required: No Beliefs That Will Affect Care: None Current Living Situation: Spouse and Family Current Living Situation Comment: with and daughter Other Information That Helps Us Care for You: No Feels Safe at Home: Yes Safety Concerns: Feels Safe At This Time Assistive Devices: Cane, Glasses and Other Assistive Devices Comment: partial Physical Exam Musculoskeletal: Right wrist exam: She has swelling tenderness at the wrist. She has pain with range of motion of the wrist, but slightly less so compared to 48 hours ago. She is significant limitations of finger range of motion with flexion of the digits, possibly 4 cm anterior to the distal palmar crease. Her wrist exhibits irritability and is warm compared to the remainder of the extremity. Results & Data Vital Signs (Past 12 Hours) Vital Signs Temp Pulse Pulse Resp BP BP BP 12/09/24 13:04 36.6 C 83 20 176/89 H 12/09/24 11:51 36.6 C 80 18 168/86 H 12/09/24 10:34 37.0 C 81 16 160/88 H 12/09/24 10:31 79 12/09/24 06:00 68 13 123/76 12/09/24 04:13 67 16 12/09/24 04:00 69 20 103/53 L 12/09/24 03:33 71 14 130/68 12/09/24 02:03 68 16 104/59 L 12/09/24 02:00 12/09/24 02:00 36.6 C Pulse Ox O2 Del Method 12/09/24 13:04 98 Room Air 12/09/24 11:51 97 Room Air 12/09/24 10:34 96 Room Air 12/09/24 10:31 12/09/24 06:00 95 Room Air 12/09/24 04:13 95 Room Air 12/09/24 04:00 93 Room Air 12/09/24 03:33 93 Room Air 12/09/24 02:03 96 Room Air 12/09/24 02:00 Room Air 12/09/24 02:00 Diagnostic Findings I reviewed MRI. MRI does not show evidence of fluid collection in the carpal tunnel and does not show evidence of septic flexor tenosynovitis. Does show small effusions in the radiocarpal, midcarpal DRUJ. It does show scattered er osions in the carpal bones and cannot rule out osteomyelitis given the erosions. There is no definitive fluid collection. Myositis is seen.
[2024-12-09] MEDS ORDERED: HYDROmorphone INJ 2 MG/ML SYR/VIAL ONE (14:34)
--- NOTE | 2024-12-09 15:00 | Operative Report ---
Post Operative Report Procedure Date: December 09, 2024 PRE-OP DIAGNOSIS: Right septic wrist POST-OP DIAGNOSIS: Right septic extensor tenosynovitis, right septic radiocarpal joint, midcarpal joint, distal radial ulnar joint PROCEDURE: Right wrist extensor tenosynovectomy, right wrist arthrotomy and drainage of radiocarpal joint, midcarpal joint and distal radial ulnar joint SURGEON: Tanmay Briones MD DESK MONITOR: Marie Velazco PA-C ANESTHESIA: General FINDINGS: Significant abnormal and synovitis in the 2nd, 3rd and 4th extensor compartments. There was abnormal fluid accumulation in the radiocarpal joint with significant inflammatory reaction consistent with synovitis. This was suspicious for infection. There is no obvious evidence of osteomyelitis. There was no gross purulence but there is significant serous fluid. She had a moderate amount of synovitis in the radiocarpal joint with a moderate amount of fluid, As well as abnormal synovitis. She had a mild to moderate amount of fluid in both the DRUJ and midcarpal joint. There was a significant amount of extensor tenosynovitis in the dorsal wrist. There was no significant flexor tenosynovitis and no evidence of joint fluid in the carpal tunnel. Estimated Blood Loss: 3 mL Specimens: Multiple cultures taken, both superficial and deep. Fluid sent for crystal analysis. INDICATIONS: This is a female with progressive pain and swelling in the wrist region. She presents with a warm wrist and an elevated ESR after failure of conservative treatment. She presents with concern for septic wrist. The risks and benefits have been discussed including, but not limited to, risk of infection, nerve injury, stiffness, loss of motion, failure to improve, etc. Reasonable outcomes and options of treatment were discussed. An explanation of appropriate alternatives to the procedure that may be advantageous were discussed and their risks and benefits, as well as the risks and benefits of not proceeding with treatment. I offered to answer any additional inquiries concerning the treatment involved. All the patients questions were answered. The patient is agreeable, understanding of the treatment plan and alternatives, and wishes to proceed with the treatment plan. DESCRIPTION OF OPERATION: The patient was identified. The proper procedure and site were verified. A surgical time out was taken and observed. The patient was given perioperative antibiotics prior to the skin incision. After administration of anesthesia, the patient's arm prepped and draped in the usual sterile fashion. I made a longitudinal incision adjacent to Sindy's tubercle approximately 2 cm in length. Dissection was carried down through the skin and subcutaneous tissue. EPL was identified and this was transposed. There is a moderate amount of extensor tenosynovitis in the 2nd, 3rd and 4th extensor compartments. I performed extensor tenosynovectomy. There is abnormal appearing soft tissues which appeared to be inflamed in the region suggestive of infection. I will I elevated the fourth extensor compartment and made a transverse arthrotomy in the radiocarpal joint. A significant mount of fluid accumulation was identified there but no gross purulence. There is a lot of synovitis in the wrist. I performed a synovectomy in the radiocarpal joint and I performed arthrotomy and drainage of the radiocarpal joint. I then performed mini arthrotomy in the midcarpal joint making a small incision and a small amount of fluid was encountered there. I likewise performed a small arthrotomy in the distal radial ulnar joint. With a small amount of fluid seen seen there. I irrigated copiously all 3 joints both the radiocarpal joint, midcarpal joint a nd DRUJ. Patient and significant limitations in flexion of the digits preoperatively and the hand was very swollen volarly. MRI showed evidence of myositis in the thenar muscles. I did to proceed with incision volarly to inspect the area for any infection. I made a small incision just proximal to the carpal tunnel staying just ulnar to the palmaris longus, proximal to the wrist crease. Dissec t was carried out to the skin and subtenons tissue. I opened up the fascia and identified the flexor tendons in the distal forearm. I do not to see evidence of pus in the area and identify any septic flexor tenosynovitis. There is no evidence of fluid in the carpal tunnel. Incisions were copiously irrigated. I closed the capsule layer with 2-0 PDS. Tourniquet was let down hemostasis was taken bipolar electrocautery. Extensor retinaculum was closed with 4-0 Monocryl. EPL was left transposed. Subcutaneous layers were closed with 4-0 Monocryl and running 3-0 Prolene subcuticular stitches were used on skin on both incisions. Patient was placed in a soft dressing was sent to the PACU in stable condition. Due to the complex nature of the procedure, the entire surgery was performed w ith the operational assistance of Marie Velazco PA-C.The bindery assistant, under direct supervision, was involved in the actual performance of all aspects of the surgical procedure including hemostasis, tissue retraction and incision, instrument management, patient positioning, and wound closure. Postoperative plan be range of motion as tolerated. Will institute immediate aggressive therapy as her digits are significantly stiff. Will continue antibiotics empirically and monitor culture results. Attestation: I attest to the content of the Intraoperative Record and any orders documented therein. Any exceptions are noted below.
[2024-12-09] MEDS: BUPIVACAINE 0.5 % 5 MG/1 ML MPF 30ML VIAL ONE (15:05)
--- NOTE | 2024-12-09 15:17 | Anesthesiology Progress Note ---
Date of Service December 09, 2024 Anesthesia Post Procedure Vital Signs Vital Signs: Temp Pulse Pulse Resp BP BP BP 12/09/24 13:04 36.6 C 83 20 176/89 H 12/09/24 11:51 36.6 C 80 18 168/86 H 12/09/24 10:34 37.0 C 81 16 160/88 H 12/09/24 10:31 79 12/09/24 06:00 68 13 123/76 12/09/24 04:13 67 16 12/09/24 04:00 69 20 103/53 L 12/09/24 03:33 71 14 130/68 12/09/24 02:03 68 16 104/59 L 12/09/24 02:00 12/09/24 02:00 36.6 C 12/09/24 01:33 76 12/09/24 01:00 75 16 159/90 H 12/09/24 00:33 78 15 145/83 H 12/09/24 00:09 76 13 144/75 H 12/08/24 23:16 77 16 142/78 H 12/08/24 23:00 78 17 142/79 H 12/08/24 22:45 76 17 148/81 H 12/08/24 22:15 83 18 151/105 H 12/08/24 22:00 83 14 135/72 12/08/24 21:45 78 15 127/79 12/08/24 21:44 77 12/08/24 21:30 79 16 149/82 H 12/08/24 21:15 77 18 142/86 H 12/08/24 20:45 77 17 151/98 H 12/08/24 20:30 81 21 170/90 H 12/08/24 20:15 73 15 151/100 H 12/08/24 20:00 75 12 144/73 H 12/08/24 19:45 77 16 152/81 H 12/08/24 19:35 79 19 158/94 H 12/08/24 18:06 81 12/08/24 18:00 79 19 150/93 H 12/08/24 17:45 84 22 167/87 H 12/08/24 16:48 12/08/24 15:55 37.1 C 96 H 19 124/75 Pulse Ox O2 Del Method 12/09/24 13:04 98 Room Air 12/09/24 11:51 97 Room Air 12/09/24 10:34 96 Room Air 12/09/24 10:31 12/09/24 06:00 95 Room Air 12/09/24 04:13 95 Room Air 12/09/24 04:00 93 Room Air 12/09/24 03:33 93 Room Air 12/09/24 02:03 96 Room Air 12/09/24 02:00 Room Air 12/09/24 02:00 12/09/24 01:33 12/09/24 01:00 95 Room Air 12/09/24 00:33 97 Room Air 12/09/24 00:09 96 Room Air 12/08/24 23:16 95 Room Air 12/08/24 23:00 94 Room Air 12/08/24 22:45 96 Room Air 12/08/24 22:15 94 12/08/24 22:00 95 12/08/24 21:45 94 12/08/24 21:44 12/08/24 21:30 93 12/08/24 21:15 92 12/08/24 20:45 93 12/08/24 20:30 94 12/08/24 20:15 94 12/08/24 20:00 12/08/24 19:45 96 12/08/24 19:35 96 12/08/24 18:06 12/08/24 18:00 96 12/08/24 17:45 97 Room Air 12/08/24 16:48 96 Room Air 12/08/24 15:55 96 Room Air Pain Intensity Right Hand: Pain Intensity: 4 Transfer of Care Handoff Completed per policy Notes Mental Status: alert / awake / arousable and participated in evaluation Patient Amnestic to Procedure: Yes Nausea / Vomiting: adequately controlled Pain: adequately controlled Airway Patency, RR, SpO2: stable & adequate BP & HR: stable & adequate Hydration State: stable & adequate Anesthetic Complications: no major complications apparent and Pt Satisfied with anesthetic care
[2024-12-09] MEDS ORDERED: ATROPINE SULFATE 0.1 MG/ML 10ML SYR IV PRN (15:20)
[2024-12-09] MEDS: ONDANSETRON INJ 2 MG/ML 2 ML VIAL IV PRN (15:30)
[2024-12-09] MEDS: ONDANSETRON INJ 2 MG/ML 2 ML VIAL ONE (17:17)
[2024-12-09] MEDS: METOPROLOL SUCC 25MG EXT REL TAB PO SCH (17:24)
[2024-12-09] MEDS: POTASSIUM CHLORIDE CRTAB 20 MEQ TABCR PO ONE (17:32)
[2024-12-09] MEDS: ONDANSETRON INJ 2 MG/ML 2 ML VIAL IV STA (18:25)
[2024-12-09] MEDS: cefTRIAXone SODIUM 2,000 MG/50 ML BAG IV SCH (20:12)
[2024-12-10] MEDS: ACETAMINOPHEN 325 MG TAB PO PRN ×2 (04:13→20:22)
[2024-12-10 05:46] LABS: Hematocrit (blood only) 36.5 % (37.0-47.0); Hemoglobin 11.6 g/dl (12.0-16.0); Mean Corpuscular Hemoglobin 25.6 pg (25.0-34.0); Mean Corpuscular Volume 80.6 fL (80.0-100.0); Platelet Count 304 K/uL (130-400); RDW Standard Deviation 42.2 fL (36.4-46.3); Red Blood Count 4.53 M/uL (4.20-5.40); White Blood Count 11.86 K/ul (4.8-10.8)
[2024-12-10 06:01] LABS: Anion Gap 7.0 (3-11); Blood Urea Nitrogen 11.0 mg/dl (6-23); Calcium 8.6 mg/dl (8.6-10.3); Carbon Dioxide 27.0 mmol/L (21-32); Chloride 104.0 mmol/L (98-107); Creatinine Clr Calc Pharmacy 66.3 ml/min; Glucose 97.0 mg/dl (70-99(Fasting)); Potassium 3.7 mmol/L (3.5-5.1); Sodium 138.0 mmol/L (136-145)
[2024-12-10] MEDS: VANCOMYCIN LEVEL ONE (06:09)
--- NOTE | 2024-12-10 09:06 | Pharmacy Report ---
Pharmacy PK ABX Note - Date of Service December 10, 2024 - Assessment and Plan Assessment 12/10: * Random vancomycin level this AM was ~9 mcg/ml - current vancomycin dosing associated with AUC/LEXI <400 therefore will increase dosing to maintain goal of 400-600. Will increase to vancomycin 1000 mg iv q 12 hours. Blood cultures no growth thus far. Awaiting wrist culture results, still pending. Patient continues on ctx. 12/09: * 74 year old F receiving vancomycin and ceftriaxone for treatment of suspected tenosynovitis. Worsening hand/wrist infection X 2 weeks outpatient, trialed on cephalexin by PCP. Ortho consulted. Plan for I&D today. Blood cultures pending. SCr 0.94-->0/74mg/dl. * Day # 2 of antimicrobial therapy. Plan Vancomycin * Increase to vancomycin 1000 mg iv q 12 hours Pharmacy will continue to follow and will adjust dose/frequency as necessary. Thank you. Pharmacy has transitioned to AUC monitoring for vancomycin. AUC/LEXI is the preferred PK/PD target and is associated with decreased risk of nephrotoxicity compared to traditional trough targets.
[2024-12-10] MEDS ORDERED: ACETAMINOPHEN 325 MG TAB PO PRN (09:44)
[2024-12-10] MEDS: KETOROLAC TROMETHAMINE 15 MG/ML VIAL IV ONE (10:55)
--- NOTE | 2024-12-10 12:08 | Hospitalist Progress Note ---
Date of Service December 10, 2024 Assessment & Plan (1) Right wrist pain: (2) Infectious tenosynovitis: (3) History of heart artery stent: (4) Hypertension: Plan This patient is a 74-year-old female who presented on 12/08 at the best of her PCP (Dr. Spear) as well as ortho surgery (Dr. Briones) for IV abx in the setting of worsening right wrist infection. #Right wrist infection | infectious tenosynovitis Failure of outpatient antibiotics (Keflex) No leukocytosis; VSS on admission; not septic; afebrile, however patient reported fevers at home in the week [employer] Blood cultures drawn on 12/08 with NGTD Lactate and procalcitonin WNL MR wrist RT wo/w con on 12/09 revealed partial tears and multiple ligaments; tendinitis at the right extensor carpi ulnaris tendon Orthopedic surgery consult appreciated Hold antiplatelet therapy prior to surgery IVF added while NPO I&D performed with Dr. Briones on the afternoon of 12/09 Notable findings: "Significant abnormal and synovitis in the 2nd, 3rd and 4th extensor compartments" "Abnormal fluid accumulation in the radiocarpal joint with significant inflammatory reaction consistent with synovitis" Gram stains/wound cultures taken on 12/09 without growth to date Continue Vancomycin 1000 mg IV q24h Continue Ceftriaxone 2000 mg IV q24h Patient reporting significant pain following her surgery on 12/10; pain regimen as follows: Ice application to wrists as needed Acetaminophen 650 mg p.o. as needed for pain 15 Oxycodone 5 mg p.o. as needed for pain 6/10 Patient reported that she was initially refractory to Toradol, but later reported it did help her pain #Hypokalemia - resolved Mild; K 3.3 on 12/09 Repleted Trend BMP #History of PTCA with RAMON in 2022 Noted; aspirin and Plavix held prior to surgery Will plan to restart aspirin on the afternoon of 12/10 Restart DAPT on the morning of 12/11 #HTN Hold nifedipine on the morning of 12/09 prior to surgery; will plan to restart on 12/10 Restart losartan on 11/30 Continue metoprolol #HLD Continue atorvastatin #Hypothyroidism Continue levothyroxine #?Psoriatic arthritis Hold apremilast for now in the setting of acute infection Disposition: Continued stay on [facility] telemetry for pain control; Gram stains pending VTE PPx: DAPT; SCDs Admission and Anticipated Discharge Date Admission Date: December 08, 2024 Supervising Physician Co-Signing Physician Notes Attending Attestation - Chart reviewed, care plan d/w GENA Alfred. I agree w/ the lawton components of his documentation. Appreciate ortho assistance. Would advise ID consultation for abx recs/guidance. Steven Doran MD Subjective Mrs. Fountain is still experiencing significant pain on the dorsal aspect of her right hand this morning. She was able to sleep on and off last night, but had difficulty eating last night and vomited after her meal. She believes this might of been due to the anesthesia. No nausea after having breakfast this morning. Her main concern is that she is having 7/10 pain in her right hand, and is still having difficulty bending her fingers. Patient ambulated to the bathroom this morning without difficulty. ROS: Patient endorses significant pain in the dorsal aspect of the right hand, pain in the right thumb, difficulty flexing and extending her fingers, and increased urinary frequency. Patient denies fever, chills, night sweats, chest pain, SOB, pleuritic CP, cough, abdominal pain, N/V/D, or changes in urinary or bowel habits. Review of Systems Review of Systems: See HPI above Physical Exam Physical Exam: General: no acute distress; anxious; resting peacefully in bed; pleasant affect; non-toxic appearing; frail appearing; cooperative; SpO2 95% on RA HEENT: normocephalic, atraumatic; no scleral icterus; PERRLA; vision and hearing intact Neck: supple; trachea midline Skin: warm, dry without signs of tenting; no cyanosis; no rashes, bruising, lesions, or erythema noted CV: chest wall NTP; RRR; S1/S2 normal; no murmurs/rubs/gallops; pulses intact and symmetric at radial, DP, and PT Lungs: no acute respiratory distress; symmetrical chest wall expansion; clear breath sounds across all lung maxwell w/o adventitious sounds; no wheezing ABD: Soft, NTP; BS present; no rebound/guarding; no distention MSK: no tics or fasciculations; no edema noted in the LEs b/l, nonerythematous Right hand: Wrap in place; the dorsal aspect of the right hand/wrist are TTP; thumb saddle joint is TTP; patient exhibits ability to flex approximately 30 degrees in each finger joint; patient reports sensation is intact and symmetric in the fingers bilaterally assessed via light touch Neuro: A&Ox3; normal mood and affect; fluent speech Results & Data Results & Data Vital Signs (Past 12 Hours) Vital Signs Temp Pulse Pulse Resp BP Pulse Ox Pulse Ox 12/10/24 11:07 36.8 C 91 H 16 123/63 95 12/10/24 10:19 71 12/10/24 09:10 36.7 C 76 16 128/78 96 12/10/24 04:00 96 12/10/24 04:00 36.5 C 86 18 155/87 H 96 O2 Del Method O2 Del Method 12/10/24 11:07 Room Air 12/10/24 10:19 12/10/24 09:10 Room Air 12/10/24 04:00 Room Air 12/10/24 04:00 Room Air PG Care Time/CCT Total # of Minutes Spent Total Time Spent with Patient: Total time spent is greater than 50% in coordination of care (as documented) at patient's floor/unit and/or counseling patient: Coding [place] [address] SUB INP/OBS CARE 3/50MIN Patient Type Established Medical Decision Making High Complexity Diagnoses Right wrist pain M25.531 Infectious tenosynovitis M65.10 History of heart artery stent Z95.5 Hypertension I10
[2024-12-10] MEDS: PANTOprazole 40 MG/10 ML SYR IV ONE (13:13)
[2024-12-10] MEDS: VANCOMYCIN HCL 1,000 MG in SODIUM CHLORIDE 0.9% 250 ML IV SCH (13:16)
--- NOTE | 2024-12-10 15:54 | Orthopedic Progress Note ---
Date of Service December 10, 2024 Assessment & Plan (1) Septic arthritis of wrist, right: Plan: At this point in time, I do not anticipate any additional surgical treatment. I do feel patient is stable for discharge tomorrow if the primary team wishes to do so. Upon follow-up she should follow-up with Dr. Briones's office, KAM Velazco in 3 to 7 days from discharge. Would recommend continued empiric treatment with antibiotics and adjustment as necessary pending culture results. I encourage aggressive digital range of motion. I did consult occupational therapy, but it is not appear that she has been seen by them today. I recommend strict elevation of the hand on at least 3 pillows and I instructed her in digital range of motion. Admission and Anticipated Discharge Date Admission Date: December 08, 2024 Subjective Leticia states some improvements in pain in the hand compared to prior to the surgery. Physical Exam Musculoskeletal: Right hand exam: She has moderate swelling in the hand, mostly distal to the Cordell wrap. She has decrease in swelling compared to prior to the surgery. She has no evidence of streaking erythema. She has supple short arc range of motion. No purulent drainage. Incisions are clean dry and intact. Results & Data Vital Signs (Past 12 Hours) Vital Signs Temp Pulse Pulse Resp BP Pulse Ox Pulse Ox 12/10/24 15:20 36.7 C 80 16 119/72 94 12/10/24 11:07 36.8 C 91 H 16 123/63 95 12/10/24 10:19 71 12/10/24 09:10 36.7 C 76 16 128/78 96 12/10/24 04:00 96 12/10/24 04:00 36.5 C 86 18 155/87 H 96 O2 Del Method O2 Del Method 12/10/24 15:20 Room Air 12/10/24 11:07 Room Air 12/10/24 10:19 12/10/24 09:10 Room Air 12/10/24 04:00 Room Air 12/10/24 04:00 Room Air (1) Septic arthritis of wrist, right Septic arthritis organism: due to unspecified organism Qualified Code(s): M00.9 - Pyogenic arthritis, unspecified
[2024-12-10] MEDS: LOSARTAN POTASSIUM 50 MG TAB PO SCH (16:09)
[2024-12-10] MEDS: ASPIRIN 81 MG ECTAB PO ONE (16:09)
[2024-12-10] MEDS ORDERED: KETOROLAC TROMETHAMINE 10 MG TABLET PO PRN (18:00)
[2024-12-10 20:27] VITALS: RESP 18
[2024-12-11 05:00] LABS: Hematocrit (blood only) 34.2 % (37.0-47.0); Hemoglobin 10.8 g/dl (12.0-16.0); Mean Corpuscular Hemoglobin 25.6 pg (25.0-34.0); Mean Corpuscular Volume 81.0 fL (80.0-100.0); Platelet Count 288 K/uL (130-400); RDW Standard Deviation 42.6 fL (36.4-46.3); Red Blood Count 4.22 M/uL (4.20-5.40); White Blood Count 9.04 K/ul (4.8-10.8)
[2024-12-11 05:40] LABS: Anion Gap 7.0 (3-11); Blood Urea Nitrogen 15.0 mg/dl (6-23); Calcium 8.1 mg/dl (8.6-10.3); Carbon Dioxide 25.0 mmol/L (21-32); Chloride 109.0 mmol/L (98-107); Creatinine Clr Calc Pharmacy 50.7 ml/min; Glucose 109.0 mg/dl (70-99(Fasting)); Potassium 3.5 mmol/L (3.5-5.1); Sodium 141.0 mmol/L (136-145)
[2024-12-11] MEDS: CLOPIDOGREL BISULFATE 75 MG TAB PO SCH (08:24)
[2024-12-11] MEDS: ASPIRIN 81 MG ECTAB PO SCH (08:25)
--- NOTE | 2024-12-11 08:52 | Discharge Summary ---
Discharge Summary Date of Service December 11, 2024 Principal Dx & Hospital Course #1 = Principal Diagnosis (1) Right wrist pain: (2) Infectious tenosynovitis: (3) History of heart artery stent: (4) Hypertension: Plan This patient is a 74-year-old female who presented on 12/08 at the best of her PCP for IV abx in the setting of worsening right wrist infection. Patient underwent an I&D with Dr. Briones on 12/09. Day of discharge 12/11: Patient reports that she is doing well this morning. She had difficulty sleeping last night, but has been eating and drinking well. Patient is still having 5 out of 10 pain on the dorsal aspect of her right hand, as well as under her right thumb joint. She reports that the pain medicine while in the hospital has been helping. No setbacks overnight. No fevers. She exhibits increased a bility to flex/bend her fingers this morning. Patient lives with her and daughter, and reports that she does have good support at home. Overall, she reports she is doing well, and does feel ready to go home today and spend time with her dog (who is a Frederic Hernan terrier). ROS: Patient endorses right dorsal hand pain, intermittent numbness and tingling in the right fingers, difficulty flexing her fingers, and increased urinary frequency. Patient denies fevers, chills, night sweats, chest pain, SOB, pleuritic CP, cough, abdominal pain, N/V/D, or burning with urination. 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 Briones on the afternoon of 12/09 Notable findings: "Significant abnormal and synovitis in the 2nd, 3rd and 4th extensor compartments" "Abnormal fluid accumulation in the radiocarpal joint with significant inflammatory reaction consistent with synovitis" Vancomycin and ceftriaxone while in the hospital Synovial fluid crystals did not reveal evidence of gout or pseudogout Gram stains/wound cultures taken on 12/09 without growth to date; ? Clean due to receiving IV antibiotics prior to I&D Infectious disease consult appreciated Augmentin 875 mg p.o. BID x 3 weeks Doxycycline 100 mg p.o. BID x 3 weeks Ice application to wrists as needed Patient declined a short course of oxycodone upon discharge; reports she would like to stick to acetaminophen at home PT/OT consult appreciated #History of PTCA with RAMON in 2022 Noted; aspirin and Plavix held prior to surgery DAPT has been restarted postoperatively #Hypokalemia - resolved Mild; K 3.3 on 12/09, but WNL on 12/11 Repleted Trend BMP #HTN Continue nifedipine, losartan, metoprolol #HLD Continue atorvastatin #Hypothyroidism Continue levothyroxine #?Psoriatic arthritis Apremilast held in the setting of acute infection Okay to restart upon discharge Disposition: Discharge home Notes For Next Care Provider Patient was hospitalized from 12/08 - 12/11 for a right hand/wrist infection (an suspected infectious tenosynovitis). She underwent an incision and drainage with Dr. Briones on 12/09. While she reports improved ability to flex her fi ngers, she still has difficulty making a fist/gripping with her fingers. Patient will require a follow-up with Dr. Briones's office in the next 3 to 7 days. New prescriptions: - Doxycycline 100 mg p.o. twice daily x 3 weeks - Augmentin 875 mg p.o. twice daily x 3 weeks No growth to date on wound cultures after 48 hours; however, recommend follow-up until finalized. Admission HPI Per Admitting Provider Mrs. Fountain is a [id number] 74yo female with PMH of PTCA with RAMON in 2022 (on aspirin and Plavix), HTN, HLD, psoriatic thyroiditis, and hypothyroidism. 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 Patient was initially trialed on Keflex outpatient by her PCP, but this did not improve her symptoms. She also was prescribed trial of steroids outpatient, but this did not improve her symptoms or swelling. She has been having pain mainly in the thumb joint of her right hand, on the dorsal aspect of her right wrist. Pain radiates up to her elbow. She characterizes it as a constant, "throbbing" pain around the thumb. Patient has been taking tramadol at home for pain (which was leftover from her hip surgery), and reports that this has been helping more than Tylenol. At present, she rates the pain 5 out of 10. Patient saw her PCP today, and was sent in for IV antibiotics. She was originally set to have a surgical consult with [facility] tomorrow on 12/09. She denies any prior history of injuries to the right arm or wrist. In regard to cardiac history, she underwent a PTCA with RAOMN in 2022. She is currently on aspirin and Plavix daily for heart stents, but was told to to stop taking them yesterday on 12/07 in preparation for potential surgery. No PMH of stroke, DM, or kidney issues. Patient believes she might of had fevers at home this past week. She denies smoking, tobacco use, or recent alcohol use. Patient took most of her regular morning medicines today, but did not take her aspirin or Plavix. She is still currently taking her antibiotic. She manages her own medicine at home. Patient's vitals are stable at time of admission. ED course: NSS 1000 mL IV Vancomycin 1500 mg IV Ceftriaxone 2000 mg IV ROS: Patient endorses pain on the dorsal aspect of the right wrist and around the right thumb joint, fevers at home this past week, night sweats, headache, numbness or tingling in the right hand, and difficulty flexing/moving her fingers. Patient denies chills, dizziness/lightheadedness with walking, changes in vision, chest pain, chest palpitations, SOB, cough, pleuritic CP, abdominal pain, N/V/D, or changes in urinary bowel habits. Admission Exam Per Admitting Provider General: no acute distress; anxious; pleasant affect; non-toxic appearing; frail appearing; cooperative; SpO2 96% on RA HEENT: normocephalic, atraumatic; no scleral icterus; PERRLA; vision and hearing intact Neck: supple; trachea midline Skin: warm, dry without signs of tenting; no cyanosis; no rashes, bruising, lesions, or erythema noted CV: chest wall NTP; RRR; S1/S2 normal; no murmurs/rubs/gallops; pulses intact and symmetric at radial, DP, and PT Lungs: no acute respiratory distress; symmetrical chest wall expansion; clear breath sounds across all lung maxwell w/o adventitious sounds; no wheezing ABD: Soft, NTP; BS present; no rebound/guarding; no distention MSK: no tics or fasciculations; no edema noted in the LEs b/l, nonerythematous Right hand: The dorsal aspect of the right hand/wrist is swollen and mildly erythematous; hot to touch; thumb saddle joint is TTP, and patient exhibits minimal ability to flex at the DIP of her thumb; patient exhibits ability to flex 15 to 25 degrees in each of her finger joints, but this elicits pain; patient has significant difficulty flexing and extending her wrist; no deficits or difficulty with flexing/extending her elbow Neuro: A&Ox3; normal mood and affect; fluent speech; patient reports sensation is intact and symmetric in the hands bilaterally assessed via light touch at the ulnar/radial surfaces Discharge Exam General: no acute distress; pleasant; resting peacefully in bed; non-toxic appearing; frail appearing; cooperative; SpO2 96% on RA HEENT: normocephalic, atraumatic; no scleral icterus; PERRLA; vision and hearing intact Neck: supple; trachea midline Skin: warm, dry without signs of tenting; no cyanosis; no rashes, bruising, lesions, or erythema noted CV: chest wall NTP; RRR; S1/S2 normal; no murmurs/rubs/gallops; pulses intact and symmetric at radial, DP, and PT Lungs: no acute respiratory distress; symmetrical chest wall expansion; clear breath sounds across all lung maxwell w/o adventitious sounds; no wheezing ABD: Soft, NTP; BS present; no rebound/guarding; no distention MSK: no tics or fasciculations; no edema noted in the LEs b/l, nonerythematous Right hand: Wrap in place; the dorsal aspect of the right hand/wrist are TTP; thumb saddle joint is TTP; patient exhibits ability to flex approximately 30-45 degrees in each finger joint; however, patient still lacks the ability to make a fist at this time; postal carrier strength is 1/5 in the right hand; patient reports sensation is intact and symmetric in the hand/fingers bilaterally assessed via light touch Neuro: A&Ox3; normal mood and affect; fluent speech Discharge Plan Discharge Items Patient Disposition: Home - Home Health Services Reason For Visit: RIGHT WRIST INFECTION Discharge Diagnosis: Right wrist infection, tenosynovitis Condition on Discharge: Good Activity: As commented below Non-emergency contact: Primary Care Provider Call non-emergency contact if: you have any medication questions, your symptoms worsen, your pain is not controlled, your pain is worsening and you have a fever Follow-up/Referrals: Paolo Spear, [Primary Care Provider] - (PLEASE CALL YOUR PRIMARY CARE PROVIDER TO SCHEDULE A HOSPITAL FOLLOW-UP WITHIN 7-10 DAYS) Diet: Regular Addtl Attending Provider Instructions: You were hospitalized at [facility] from 12/08 -12/11 for a right hand/wrist infection. There was concern for a condition called "infectious tenosynovitis" and two IV antibiotics were immediately started upon arrival (vancomycin and ceftriaxone). An MRI was taken of the wrist that revealed partial tears and multiple ligaments, elbow as well as tendinitis in one of your extensor tendons. You underwent a procedure known as an incision and drainage with Dr. Briones on 12/09. Wound cultures were taken at that time, but have not grown any bacteria approximately 48 hours after the operation. Please follow-up with your PCP regarding final results for this wound culture. At time of discharge, you do not have an elevated white blood cell count to indicate signs of severe infection, and your vitals are currently stable. For these reasons, we feel that it is safe for you to return home on oral antibiotics. New prescriptions: - Doxycycline 100 mg tablets twice daily x 3 weeks - Augmentin 875 mg tablets twice daily x 3 weeks Please continue to take these antibiotics even if you get begin to feel better to complete the full course through 12/31/2024. If you develop any stomach discomfort from taking these antibiotics, you may benefit from taking [id number] medications such as omeprazole or famotidine. You may resume your normal medication regimen upon discharge (please start taking aspirin and Plavix again for your history of heart stents). Additionally, please plan to follow-up with Dr. Briones's office in the next 3 to 7 days to assess your wound. It is recommended that you continue to elevate your wrist daily, use the sling as instructed,, and work on digital range of motion exercises with your fingers. If you develop any new or worsening symptoms, such as inability to flex your fingers, fever, chills, or severe intractable pain in the right hand/wrist, please return to the emergency department immediately. It was a pleasure take care of you. Please reach out with any questions or concerns. Sincerely, The hospital medicine team at [facility] Addtl Brake Lining Curer Provider Instructions: Discharge instructions per [facility]: -Your wrist was surgically washed out to help get rid of the infection in the joints and around the tendons -You may remove the dressing in 48 hours and change it as needed with a non- adhesive/soft dressing. Keep your wound clean and dry. You may clean around it but do not soak or completely submerge the wound until the stitches are taken out and your wound has healed over -Elevate your wrist, use ice and take pain medication as prescribed -Continue to move your fingers and wrist as tolerated so that they do not get stiff. You will need to followup with physical/occupational therapy at [facility] for digital and wrist range of motion exercises after you are discharged from the hospital. Call the office at [phone] to make or adjust your appointment -Your stitches will be removed in the clinic in 10-14 days during your followup appointment. Call the [facility] office at [phone] to make or adjust your appointment. You may also call this number with any questions or concerns regarding your wrist Pending Studies at Discharge: Yes Studies:: Wound cultures Stand-Alone Forms: My [facility] Medications and DC Order Prescriptions: New doxycycline hyclate 100 mg capsule 100 mg PO BID 21 Days Qty: 42 0RF Rx Instructions: Take 1 capsule by mouth twice daily x 21 days amoxicillin-pot clavulanate 875-125 mg tablet 1 tab PO BID 21 Days Qty: 42 0RF Rx Instructions: Take 1 tablet by mouth twice daily x 21 days Continued celecoxib 200 mg capsule 200 mg PO QDD clopidogrel 75 mg tablet 75 mg PO DAILY Rx Instructions: TOLD TO STOP TAKING12/08/24 aspirin 81 mg Tablet,Delayed Release (Dr/Ec) 81 mg PO DAILY Rx Instructions: TOLD TO STOP TAKING12/08/24 nifedipine [Procardia XL] 60 mg Tablet Extended Release 24hr 60 mg PO QAM levothyroxine 125 mcg tablet 125 mcg PO DAILYBB losartan 100 mg tablet 100 mg PO QDD atorvastatin 40 mg tablet 40 mg PO DAILY metoprolol succinate 50 mg tablet extended release 24 hr 75 mg PO QDD nitroglycerin 0.4 mg tablet, sublingual 0.4 mg sublingual DIRECTED PRN (Reason: Chest Pain) furosemide 20 mg tablet 20 mg PO DAILY PRN (Reason: EDEMA/LEG SWELLING) cholecalciferol (vitamin D3) [Vitamin D3] 10 mcg (400 unit) Capsule 20 mcg PO DAILY Otezla 30 mg tablet 30 mg PO BID magnesium oxide 400 mg magnesium Tablet 400 mg PO DAILY Rx Instructions: PER PT "RAN OUT, NEED TO GET MORE" Discontinued cephalexin 500 mg capsule 500 mg PO Q6H Rx Instructions: STARTED 11/30/24 FOR 10 DAYS Krames/Other Patient Handouts: Hand Wrist Exercises Admission Data Admit Date/Time: 12/08/24 18:50 Attending Provider: Steven Doran Admit Provider: Maik Ortiz Primary Care Provider: Paolo Spear Other Providers: Maik Ortiz; Micky Briones Other Interventions: Discharge Summary Assessment (RN) Last Done: 12/11/24 14:27 Hospital Stay Data Consultations 12/08/24 17:22 Consult Orthopedic Surgery Routine ED Decision to Admit Stat Procedures Performed Operation Date: 12/09/24 10:20 Actual Procedures p Arthrotomy and Drainage of right radial carpal joint, mid carpal joint, distal radial ulnar joint. Irrigation and debridement volar wrist, extensor tenosynovectomy(Right) - Micky Briones MD Diagnostic Imagining Performed 12/08/24 16:55 MR wrist RT wo/w con Stat Discharge Instructions Given to Patient (Per Discharging Provider) You were hospitalized at [facility] from 12/08 -12/11 for a right hand/wrist infection. There was concern for a condition called "infectious tenosynovitis" and two IV antibiotics were immediately started upon arrival (vancomycin and ceftriaxone). An MRI was taken of the wrist that revealed partial tears and multiple ligaments, elbow as well as tendinitis in one of your extensor tendons. You underwent a procedure known as an incision and drainage with Dr. Briones on 12/09. Wound cultures were taken at that time, but have not grown any bacteria approximately 48 hours after the operation. Please follow-up with your PCP regarding final results for this wound culture. At time of discharge, you do not have an elevated white blood cell count to indicate signs of severe infection, and your vitals are currently stable. For these reasons, we feel that it is safe for you to return home on oral antibiotics. New prescriptions: - Doxycycline 100 mg tablets twice daily x 3 weeks - Augmentin 875 mg tablets twice daily x 3 weeks Please continue to take these antibiotics even if you get begin to feel better to complete the full course through 12/31/2024. If you develop any stomach discomfort from taking these antibiotics, you may benefit from taking [id number] medications such as omeprazole or famotidine. You may resume your normal medication regimen upon discharge (please start taking aspirin and Plavix again for your history of heart stents). Additionally, please plan to follow-up with Dr. Briones's office in the next 3 to 7 days to assess your wound. It is recommended that you continue to elevate your wrist daily, use the sling as instructed,, and work on digital range of motion exercises with your fingers. If you develop any new or worsening symptoms, such as inability to flex your fingers, fever, chills, or severe intractable pain in the right hand/wrist, please return to the emergency department immediately. It was a pleasure take care of you. Please reach out with any questions or concerns. Sincerely, The hospital medicine team at [facility] Supervising Physician Co-Signing Physician Notes Attending Attestation and Discharge Note: Chart reviewed, discharge care plan d/w GENA Alfred. I agree w/ the lawton components of his discharge documentation. Of note - I did not perform a bedside visit or examination on day of discharge. 74yo female with h/o CAD s/p stent 2022, HTN, hypothyroidism, psoriatic arthritis on Otezla. Presented with worsening right hand/wrist infection x 2 weeks. Patient was initially on Keflex as an outpatient but this did not improve her symptoms. She also was prescribed steroids but this did not improve her symptoms or swelling. Following admission she was placed on broad-spectrum IV antibiotics. Seen by Dr Tanmay Briones, orthopedics. He took Ms Fountain to the OR on 12/09 and he performed the following - -Right wrist extensor tenosynovectomy -Right wrist arthrotomy and drainage of radiocarpal joint, midcarpal joint and distal radial ulnar joint. Thus, operative findings were c/w right septic extensor tenosynovitis and right septic radiocarpal joint/midcarpal joint/distal radial ulnar joint. Interestingly all intra-op cultures x 3 were negative for a specific pathogen. Blood cultures were negative. [id number], given the septic wrist, she was discharged to home on 3-week courses of doxycycline & augmentin. Infectious diseases was consulted and made antibiotic recommendations as above. She will need close f/u with Dr Briones for the right wrist (within 1 week). Steven Doran MD Total Time Total Time Spent Total Time Spent (In Minutes): 35 Coding [place] [address] INP/OBS DISCH >30 MIN Patient Type Established Medical Decision Making Moderate Complexity Diagnoses Right wrist pain M25.531 Infectious tenosynovitis M65.10 History of heart artery stent Z95.5 Hypertension I10
--- NOTE | 2024-12-11 11:11 | Infectious Disease Consult ---
Date of Consultation December 11, 2024 Assessment & Plan (1) Septic arthritis of wrist, right: Plan Problems: #R wrist septic arthritis #R hand septic extensor tenosynovitis Micro: 12/09 OR 3. mid carpal joint cx: NGTD. GS--no org 12/09 OR 1. extensive tendons cx: NGTD. GS--no org 12/09 OR 2. radial carpal joint cx: NGTD. GS--no org 12/08 BCx x2: NGTD Abx: Vanc 12/08 - present Ceftriaxone 12/08 - present 74 yo F with PTCA with RAMON 2022, HTN, HLD, psoriatic arthritis, hypothyroidism who presented on 12/08 with a worsening R hand/wrist infection x 2 weeks, admitted with concern for R hand tenosynovitis and R wrist septic arthritis, s/p washout 12/09/24. Pt was initially trialed on cephalexin 500 mg q6h as outpatient by her PCP, but this did not improve her symptoms. Was also prescribed a trial of steroids as outpatient, but this did not help. Reports pain mainly in her thumb joint, on dorsal aspect of R wrist, with pain radiating to her elbow. Denied prior history of injuries to her RUE. Pt believes she may have had fevers at home this past week. On presentation, pt was afebrile, VSS. Labs showed WBC 10.27, 79% neutrophils. On exam, noted to have R hand pain and swelling with erythema, wrist warm to touch with tenderness with range of motion. Pt was started on vanc, ceftriaxone. Ortho was consulted. She had been seen in ortho clinic recently prior to admission, where she had ESR 48. Uric acid normal. MRI R wrist on 12/09 showed multiple partial tears of ligaments, tendinitirs. There was concern for septic joint, so underwent washout on 12/09 with R wrist extensor tenosynovectomy, R wrist arthrotomy and drainage of radiocarpal joint, midcarpal joint and distal radial ulnar joint. Per operative note, there was abnormal synovitis, no obvious evidence of osteomyelitis. No gross purulence, but significant serous fluid. Concern for R septic extensor tenosynovitis and R septic radiocarpal joint, midcarpal joint, distal radial ulnar joint. OR cultures from 12/09 are NGTD, and gram stain with no organisms seen. Synovial fluid with no crystals seen. ID consulted for antibiotic recs, as pt is ready for discharge today. Recommendations: - Pt received cephalexin prior to admission, and ~24 hours of vanc and ceftriaxone prior to the OR. With OR cultures NGTD and gram stain negative for organisms, could indicate that cephalexin was appropriate therapy but pt just needed source control with washout, vs vanc/ceftriaxone sterilized the cultures, vs non-infectious. Likely would still have expected MRSA to grow out on culture if it was present in the joint. Will recommend amox/clav 875 mg PO BID plus doxycycline 100 mg PO BID for an additional 3 weeks through 12/31/24. - Follow-up OR cultures until finalized Will sign off. Consultation Information This patient recommendation is based on a telemedicine consult request which was completed asynchronously through chart review and information provided by the primary physician. The patient was not seen or examined today. The evaluation is consultative in nature and all patient care and treatment decisions can either be accepted or rejected by the patient's primary hospital-based treating physician using their own independent medical judgment for their patient. [employer] contact information: Please call [facility] . (Phone Number For Physician Use Only) Time Spent Reviewing Chart: 31+ minutes History of Present Illness Reason for Consultation: Infectious tenosynovitis Attending Physician: Steven Doran MD History of Present Illness 74 yo F with PTCA with RAMON 2022, HTN, HLD, psoriatic arthritis, hypothyroidism who presented on 12/08 with a worsening R hand/wrist infection x 2 weeks. Pt was initially trialed on cephalexin 500 mg q6h as outpatient by her PCP, but this did not improve her symptoms. Was also prescribed a trial of steroids as outpatient, but this did not help. Reports pain mainly in her thumb joint, on dorsal aspect of R wrist, with pain radiating to her elbow. Denied prior history of injuries to her RUE. Pt believes she may have had fevers at home this past week. On presentation, pt was afebrile, VSS. Labs showed WBC 10.27, 79% neutrophils. On exam, noted to have R hand pain and swelling with erythema, wrist warm to touch with tenderness with range of motion. Pt was started on vanc, ceftriaxone. Ortho was consulted. She had been seen in ortho clinic recently prior to admission, where she had ESR 48. Uric acid normal. MRI R wrist on 12/09 showed: 1. Partial tears of the ulnomeniscal homologue, foveal and ulnar attachments of the triangular fibrocartilage. (Acute/Acute on top of chronic). 2. Mild synovial effusion is seen at the distal radioulnar joint, which may suggest central perforation of the triangular fibrocartilage. (Acute/Acute on top of chronic). 3. 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 4. Bone marrow edema at the right scaphoid, lunate, triquetrum, trapezium, trapezoid, capitate, and pisiform bones.Myogenic signal alterations of the thenar, hypothenar, and lumbrical muscles. 5. And soft tissue edema at the distal forearm and around the right wrist joint. Most appreciated at the dorsum. The etiological probabilities include Soft tissue contusion/cellulitis, trabecular microfractures/ With Polymyogenic strain versus myositis. Further workup is recommended in the appropriate clinical setting. (Acute/Acute on top of chronic). 6. Partial tears of the ulnocarpal, Radiocarpal, and radial collateral, radioscaphocapitate, radioscaphotrapezium, and dorsal radiocarpal ligaments. (Acute). 7. Tendinitis/partial tear of the right extensor carpi ulnaris tendon(Acute). There was concern for septic joint, so underwent washout on 12/09 with R wrist extensor tenosynovectomy, R wrist arthrotomy and drainage of radiocarpal joint, midcarpal joint and distal radial ulnar joint. Per operative note, there was abnormal synovitis, no obvious evidence of osteomyelitis. No gross purulence, but significant serous fluid. Concern for R septic extensor tenosynovitis and R septic radiocarpal joint, midcarpal joint, distal radial ulnar joint. OR cultures from 12/09 are NGTD, and gram stain with no organisms seen. Allergies Allergy/AdvReac Type Severity Reaction Status Date / Time No Known Allergies Allergy Verified 12/08/24 17:59 Home Medications Medication Instructions Recorded Confirmed Type apremilast 30 mg tablet (Otezla) 30 mg PO BID 12/08/24 12/08/24 History aspirin 81 mg tablet,delayed 81 mg PO DAILY 12/08/24 12/08/24 History release atorvastatin 40 mg tablet 40 mg PO DAILY 12/08/24 12/08/24 History celecoxib 200 mg capsule 200 mg PO QDD 12/08/24 12/08/24 History cephalexin 500 mg capsule 500 mg PO Q6H 12/08/24 12/08/24 History cholecalciferol (vitamin D3) 10 20 mcg PO DAILY 12/08/24 12/08/24 History mcg (400 unit) capsule (Vitamin D3) clopidogrel 75 mg tablet 75 mg PO DAILY 12/08/24 12/08/24 History furosemide 20 mg tablet 20 mg PO DAILY PRN EDEMA/LEG 12/08/24 12/08/24 History SWELLING levothyroxine 125 mcg tablet 125 mcg PO DAILYBB 12/08/24 12/08/24 History losartan 100 mg tablet 100 mg PO QDD 12/08/24 12/08/24 History magnesium oxide 400 mg PO DAILY 12/08/24 12/08/24 History metoprolol succinate 50 mg 75 mg PO QDD 12/08/24 12/08/24 History tablet,extended release 24 hr nifedipine 60 mg tablet,extended 60 mg PO QAM 12/08/24 12/08/24 History release 24 hr (Procardia XL) nitroglycerin 0.4 mg sublingual 0.4 mg sublingual DIRECTED PRN 12/08/24 12/08/24 History tablet Chest Pain Patient History Medical History Encounter for pre-operative examination Infectious tenosynovitis Psoriatic arthritis Hypokalemia Hypothyroidism Hypertension Surgical History History of heart artery stent Social History Smoking Status: Never smoker Hx Alcohol Use: No Hx Substance Use: No Preferred Language: Ukrainian Communication Ability: Effective Banker Mason Required: No Beliefs That Will Affect Care: None Current Living Situation: Spouse and Family Current Living Situation Comment: with and daughter Other Information That Helps Us Care for You: No Feels Safe at Home: Yes Safety Concerns: Feels Safe At This Time Assistive Devices: Walker Assistive Devices Comment: partial Results & Data Vital Signs (Past 12 Hours) Vital Signs Temp Pulse Pulse Resp BP Pulse Ox O2 Del Method 12/11/24 07:43 37.0 C 85 18 159/87 H 96 Room Air 12/11/24 03:30 36.5 C 66 18 133/84 96 Room Air 12/10/24 23:18 36.7 C 72 18 120/72 93 Room Air Laboratory Results Short CBC 12/11/24 Range/Units 03:45 WBC 9.04 (4.8-10.8) K/ul Hgb 10.8 L (12.0-16.0) g/dl Hct 34.2 L (37.0-47.0) % Plt Count 288 (130-400) K/uL BMP 12/11/24 03:45 Sodium 141 Potassium 3.5 Chloride 109 H Carbon Dioxide 25 BUN 15 Creatinine 0.98 D Glucose 109 H Calcium 8.1 L Medications Administered Current Inpatient Medications Acetaminophen (Acetaminophen 325 Mg Tab) 650 mg PO Q4H PRN PRN Reason: Fever/Mild Pain (Pain 1-5) Stop: 01/09/25 12:14 Last Admin: 12/10/24 20:22 Dose: 650 mg Aspirin (Aspirin 81 Mg Ectab) 81 mg PO DAILY FABY Stop: 01/10/25 08:59 Last Admin: 12/11/24 08:25 Dose: 81 mg Atorvastatin Calcium (Atorvastatin 40 Mg Tab) 40 mg PO DAILY FABY Stop: 01/08/25 08:59 Last Admin: 12/11/24 08:25 Dose: 40 mg Clopidogrel Bisulfate (Clopidogrel Bisulfate 75 Mg Tab) 75 mg PO DAILY FABY Stop: 01/10/25 08:59 Last Admin: 12/11/24 08:24 Dose: 75 mg Ceftriaxone Sodium (Rocephin) 2,000 mg in 50 mls @ 100 mls/hr IV Q24H FABY Stop: 12/16/24 17:59 Last Infusion: 12/10/24 18:30 Dose: Infused Vancomycin HCl 1,000 mg/ (Sodium Chloride) 270 mls @ 200 mls/hr IV Q12H FABY Stop: 12/16/24 13:59 Last Infusion: 12/11/24 02:47 Dose: Infused Levothyroxine Sodium (Levothyroxine Sodium 125 Mcg Tablet) 125 mcg PO DAILYBB FABY Stop: 01/08/25 06:29 Last Admin: 12/11/24 05:52 Dose: 125 mcg Losartan Potassium (Losartan Potassium 50 Mg Tab) 100 mg PO QDD FABY Stop: 01/09/25 16:29 Last Admin: 12/10/24 16:09 Dose: 100 mg Melatonin (Melatonin 3 Mg Tab) 3 mg PO HS PRN PRN Reason: Sleep Stop: 01/08/25 03:51 Metoprolol Succinate (Metoprolol Succ 25mg Ext Rel Tab) 75 mg PO QDD [facility] Stop: 01/08/25 16:29 Last Admin: 12/10/24 16:09 Dose: 75 mg Miscellaneous Information (Vancomycin Consult Active) 1 each N/A UD PRN PRN Reason: Consult Stop: 01/08/25 03:51 Nifedipine (Nifedipine Extended Rel 30 Mg Tabcr) 60 mg PO QAM [facility] Stop: 01/08/25 08:59 Last Admin: 12/11/24 08:27 Dose: 60 mg Oxycodone HCl (Oxycodone Hcl Ir 5 Mg Tab (Immediate Release)) 5 mg PO Q6H PRN PRN Reason: Mod/Severe Pain (6-10) on NRS Stop: 12/24/24 09:43 (1) Septic arthritis of wrist, right Septic arthritis organism: due to unspecified organism Qualified Code(s): M00.9 - Pyogenic arthritis, unspecified
[2024-12-11 11:57] VITALS: TEMP 99.1; O2SAT 95
[2024-12-11 14:28] VITALS: BP 160/88; PULSE 66
--- NOTE | 2024-12-11 23:59 | Electrocardiogram Report ---
Test Reason : Blood Pressure : */* mmHG Vent. Rate : 83 BPM Atrial Rate : 83 BPM P-R Int : 156 ms QRS Dur : 78 ms QT Int : 404 ms P-R-T Axes : 71 26 34 degrees QTcB Int : 474 ms Normal sinus rhythm Low voltage QRS Nonspecific ST abnormality Abnormal ECG No previous ECGs available Confirmed by Milton Perez ([id number]) on 12/11/2024 11:59:03 PM Referred By: REFERRED SELF Confirmed By: Milton Perez
== END 2024-12-11 16:11 | disposition home health service (06) ==
LOC: ED 15:50 → INTOOBSV 18:50 → SUATTDRO 18:50 → EDINP 18:50 → 2N 12-09 03:52